=== PATIENT | female | born 1960 | race Caucasian/White ===

== ENCOUNTER 2016-05-01 11:26 | Emergency (ER) | payer MEDICAID ==
--- NOTE | 2016-05-01 11:46 | ER Document Report ---
ED Medical Screen (RME) - General Stated Complaint: NECK PAIN Notes: two days c/o left face swelling with associated ear pain gets worse with eating No evidence of dental fracture, dental caries. Patient has dentures. Evidence of swelling in her gums. Afebrile I have greeted and performed a rapid initial assessment of this patient. A comprehensive ED assessment and evaluation of the patient, analysis of test results and completion of the medical decision making process will be conducted by additional ED providers. TRAVEL OUTSIDE OF THE [place] IN LAST 30 DAYS: No - Related Data Allergies/Adverse Reactions: codeine [Codeine] Allergy (Verified 05/06/15 18:19) Past Medical History - Past Medical History Cardiac Medical History: Reports: Hx Heart Attack, Hx Hypercholesterolemia, Hx Hypertension Pulmonary Medical History: Reports: Hx Asthma Past Surgical History: Reports: Hx Cardiac Surgery - cabgx3 - Immunizations Hx Diphtheria, Pertussis, Tetanus Vaccination: Yes Physical Exam - Vital signs Vitals: Temp Pulse Resp BP Pulse Ox 97.9 F 76 16 145/59 H 98 05/01/16 11:43 05/01/16 11:43 05/01/16 11:43 05/01/16 11:43 05/01/16 11:43 Course - Vital Signs Vital signs: Temp Pulse Resp BP Pulse Ox 97.9 F 76 16 145/59 H 98 05/01/16 11:43 05/01/16 11:43 05/01/16 11:43 05/01/16 11:43 05/01/16 11:43
--- NOTE | 2016-05-01 13:07 | ER Document Report ---
HPI - HPI Patient complains to provider of: swelling left face Onset: Yesterday Onset/Duration: Gradual Pain Level: 3 Context: 55 yo female had left face/jaw swelling during eating since yesterday. swelling decreased over time, them occurred again today with eating. No fever. No neck pain. No dental pain. Hx carotid stenosis full on the right, 50% left with stent placmenet. Vascular surgeron US of the left carotid was normal last month in [place]. Pt unsure if she ever had bruit on the left. Associated Symptoms: None Exacerbated by: Other - eating Relieved by: Denies Similar symptoms previously: No Recently seen / treated by doctor: No - ROS ROS below otherwise negative: Yes Systems Reviewed and Negative: Yes All other systems reviewed and negative - REPRODUCTIVE Reproductive: DENIES: : - DERM Skin Color: Normal Past Medical History - General Information source: Patient - Social History Smoking Status: Current Every Day Smoker Chew tobacco use (# tins/day): No Frequency of alcohol use: Occasional Drug Abuse: None Lives with: Family Family History: Reviewed & Not Pertinent Patient has suicidal ideation: No Patient has homicidal ideation: No - Past Medical History Cardiac Medical History: Reports: Hx Heart Attack, Hx Hypercholesterolemia, Hx Hypertension Pulmonary Medical History: Reports: Hx Asthma Renal/ Medical History: Denies: Hx Peritoneal Dialysis Past Surgical History: Reports: Hx Cardiac Surgery - cabgx3, Other - left carotid stent - Immunizations Hx Diphtheria, Pertussis, Tetanus Vaccination: Yes Vertical Provider Document - CONSTITUTIONAL Agree With Documented VS: Yes Exam Limitations: No Limitations General Appearance: No Apparent Distress - INFECTION CONTROL TRAVEL OUTSIDE OF THE [place] IN LAST 30 DAYS: No - HEENT HEENT: Normocephalic. negative: Pharyngeal Erythema, Tympanic Membrane Red, Tympanic Membrane Bulging Notes: mild swelling to left parotid gland uper and below the proximal left mandible. No stone seen in duct. no hot or red. - NECK Neck: Supple Notes: mild turbulant blood flow in left carotid heard with stethescope, no heart murmur - RESPIRATORY Respiratory: Breath Sounds Normal, No Respiratory Distress O2 Sat by Pulse Oximetry: 98 - CARDIOVASCULAR Cardiovascular: Regular Rate, Regular Rhythm - GI/ABDOMEN Gastrointestinal: Abdomen Soft - MUSCULOSKELETAL/EXTREMETIES Musculoskeletal/Extremeties: MAEW - NEURO Level of Consciousness: Awake, Alert - DERM Integumentary: Warm, Dry, No Rash Course - Vital Signs Vital signs: Temp Pulse Resp BP Pulse Ox 97.9 F 76 16 145/59 H 98 05/01/16 11:43 05/01/16 11:43 05/01/16 11:43 05/01/16 11:43 05/01/16 11:43 Discharge - Discharge Clinical Impression: Parotitis Condition: Good Disposition: HOME, SELF-CARE Instructions: Acute Parotid Gland Swelling ([facility]), Clindamycin ([facility]), Warm Packs ([facility]), ENT Additional Instructions: suck on lemon candy warm compress, massage see ENT doctor if persists to er if worse call dr. stahl in [place] your vascular surgeon and ask about the noisy blood flow sound in the left carotid that has the stent. He did the ultrasound last week and said everything was OK, but did he ever hear this sound ? Should you see him this week? Prescriptions: Clindamycin HCl [Cleocin 150 mg Capsule] 300 mg PO TID #42 capsule Referrals: SINTIA ROGER, WET END TESTER-C [Primary Care Provider] - Follow up as needed
[2016-05-01 15:05] VITALS: BP 136/62
== END 2016-05-01 14:15 | disposition home or self-care (01) ==
LOC: ER 11:26
DX: K11.20 Sialoadenitis, unspecified (principal); R22.0 Localized swelling, mass and lump, head; F17.200 Nicotine dependence, unspecified, uncomplicated; E78.00 Pure hypercholesterolemia, unspecified; I10 Essential (primary) hypertension; J45.909 Unspecified asthma, uncomplicated; I25.2 Old myocardial infarction; Z95.1 Presence of aortocoronary bypass graft
CPT/HCPCS: 99283

== ENCOUNTER → 2016-06-09 | Outpatient (CLI) | payer MEDICAID ==
[2016-06-09 09:20] LABS: ALANINE AMINOTRANSFERASE 96 U/L (9-52); ALBUMIN 4.3 g/dL (3.5-5.0); ALKALINE PHOSPHATASE 59 U/L (38-126); ASPARTATE AMINO TRANSFERASE 76 U/L (14-36); BILIRUBIN,TOTAL 0.5 mg/dL (0.2-1.3); CHOLESTEROL 118.64 mg/dL (0-200); Direct HDL 38 mg/dL (>40); TOTAL PROTEIN 6.9 g/dL (6.3-8.2); TRIGLYCERIDES 205 mg/dL (<150)
[2016-06-09 09:23] LABS: ANION GAP 13 (5-19); BLOOD UREA NITROGEN 7 mg/dL (7-20); CARBON DIOXIDE 25 mmol/L (22-30); CHLORIDE 102 mmol/L (98-107); CREATININE RESULT 0.58 mg/dL (0.52-1.25); GLUCOSE 170 mg/dL (75-110); POTASSIUM 4.3 mmol/L (3.6-5.0)
[2016-06-09 09:32] LABS: DIRECT LDL 48 mg/dL (<100)
== END ==
LOC: OD 07:22
PROVIDERS: ATTEND Internal Medicine Cardiovascular Disease
DX: E78.2 Mixed hyperlipidemia (principal); E11.9 Type 2 diabetes mellitus without complications; Z79.899 Other long term (current) drug therapy
CPT/HCPCS: 36415; 80048; 80061; 80076; 83036

== ENCOUNTER → 2016-09-11 | Outpatient (CLI) | payer MEDICAID ==
[2016-09-11 08:53] LABS: ALANINE AMINOTRANSFERASE 53 U/L (9-52); ALBUMIN 4.1 g/dL (3.5-5.0); ALKALINE PHOSPHATASE 52 U/L (38-126); ASPARTATE AMINO TRANSFERASE 28 U/L (14-36); BILIRUBIN,DIRECT 0.3 mg/dL (0.0-0.4); BILIRUBIN,TOTAL 0.4 mg/dL (0.2-1.3); CHOLESTEROL 279.49 mg/dL (0-200); Direct HDL 31 mg/dL (>40); TOTAL PROTEIN 7.1 g/dL (6.3-8.2)
[2016-09-11 09:04] LABS: DIRECT LDL 138 mg/dL (<100)
[2016-09-11 09:12] LABS: TRIGLYCERIDES 562 mg/dL (<150)
== END ==
LOC: OD 07:58
PROVIDERS: ATTEND Internal Medicine Cardiovascular Disease
DX: R94.5 Abnormal results of liver function studies (principal); E78.2 Mixed hyperlipidemia
CPT/HCPCS: 36415; 80061; 80076

== ENCOUNTER → 2016-09-27 | Outpatient (CLI) | payer MEDICAID ==
[2016-09-27 12:27] LABS: ALANINE AMINOTRANSFERASE 70 U/L (9-52); ALBUMIN 4.1 g/dL (3.5-5.0); ALKALINE PHOSPHATASE 52 U/L (38-126); ANION GAP 11 (5-19); ASPARTATE AMINO TRANSFERASE 36 U/L (14-36); BILIRUBIN,DIRECT 0.4 mg/dL (0.0-0.4); BILIRUBIN,TOTAL 0.5 mg/dL (0.2-1.3); BLOOD UREA NITROGEN 6 mg/dL (7-20); CALCIUM 9.8 mg/dL (8.4-10.2); CARBON DIOXIDE 24 mmol/L (22-30); CHLORIDE 97 mmol/L (98-107); CREATININE RESULT 0.67 mg/dL (0.52-1.25); GLUCOSE 298 mg/dL (75-110); MAGNESIUM 1.8 mg/dL (1.6-2.3); POTASSIUM 4.3 mmol/L (3.6-5.0); SODIUM 132.3 mmol/L (137-145); TOTAL PROTEIN 7.1 g/dL (6.3-8.2)
== END ==
LOC: OD 11:13
PROVIDERS: ATTEND Internal Medicine Cardiovascular Disease
DX: R94.5 Abnormal results of liver function studies (principal); Z79.899 Other long term (current) drug therapy; R63.1 Polydipsia; R68.2 Dry mouth, unspecified; E11.9 Type 2 diabetes mellitus without complications; R53.1 Weakness
CPT/HCPCS: 36415; 80048; 80076; 83036; 83735

== ENCOUNTER → 2016-12-21 | Outpatient (CLI) | payer MEDICAID ==
[2016-12-21 10:20] LABS: ALANINE AMINOTRANSFERASE 82 U/L (9-52); ALBUMIN 4.4 g/dL (3.5-5.0); ALKALINE PHOSPHATASE 55 U/L (38-126); ANION GAP 11 (5-19); ASPARTATE AMINO TRANSFERASE 51 U/L (14-36); BILIRUBIN,DIRECT 0.4 mg/dL (0.0-0.4); BILIRUBIN,TOTAL 0.6 mg/dL (0.2-1.3); BLOOD UREA NITROGEN 7 mg/dL (7-20); CALCIUM 10.8 mg/dL (8.4-10.2); CARBON DIOXIDE 25 mmol/L (22-30); CHLORIDE 99 mmol/L (98-107); CHOLESTEROL 277.66 mg/dL (0-200); CREATININE RESULT 0.65 mg/dL (0.52-1.25); Direct HDL 29 mg/dL (>40); GLUCOSE 216 mg/dL (75-110); POTASSIUM 4.7 mmol/L (3.6-5.0); SODIUM 134.7 mmol/L (137-145); TOTAL PROTEIN 7.2 g/dL (6.3-8.2)
[2016-12-21 10:32] LABS: DIRECT LDL 156 mg/dL (<100)
[2016-12-21 10:33] LABS: TRIGLYCERIDES 552 mg/dL (<150)
== END ==
LOC: OD 09:10
PROVIDERS: ATTEND Internal Medicine Cardiovascular Disease
DX: R94.5 Abnormal results of liver function studies (principal); E78.2 Mixed hyperlipidemia; E11.9 Type 2 diabetes mellitus without complications; Z79.899 Other long term (current) drug therapy
CPT/HCPCS: 36415; 80048; 80061; 80076; 83036

== ENCOUNTER 2017-05-10 21:11 | Emergency (ER) | payer MEDICAID ==
--- NOTE | 2017-05-10 21:46 | ER Document Report ---
ED Medical Screen (RME) - General Chief Complaint: Flu Symptoms Stated Complaint: SHORTNESS OF BREATH,CHEST PAIN Time Seen by Provider: 05/10/17 21:40 Mode of Arrival: Wheelchair Information source: Patient Notes: 56-year-old female presents to ED for complaint of right chest pain with pain down her right arm times a couple days. She has been coughing and short of breath for about a week. She states she took Tylenol around 634 fever 101.8. Her lungs are clear respirations unlabored speaking in full sentences. I have greeted and performed a rapid initial assessment of this patient. A comprehensive ED assessment and evaluation of the patient, analysis of test results and completion of medical decision making process will be conducted by an additional ED providers. TRAVEL OUTSIDE OF THE [place] IN LAST 30 DAYS: No - Related Data Allergies/Adverse Reactions: codeine [Codeine] Allergy (Verified 05/01/16 11:48) Past Medical History - Past Medical History Cardiac Medical History: Reports: Hx Heart Attack, Hx Hypercholesterolemia, Hx Hypertension Pulmonary Medical History: Reports: Hx Asthma Renal/ Medical History: Denies: Hx Peritoneal Dialysis Past Surgical History: Reports: Hx Cardiac Surgery - cabgx3, Hx Vascular Surgery , Other - left carotid stent - Immunizations Hx Diphtheria, Pertussis, Tetanus Vaccination: Yes Physical Exam - Vital signs Vitals: Temp Pulse Resp BP Pulse Ox 98.7 F 104 H 20 132/57 H 96 05/10/17 21:22 05/10/17 21:22 05/10/17 21:22 05/10/17 21:22 05/10/17 21:22 Course - Vital Signs Vital signs: Temp Pulse Resp BP Pulse Ox 98.7 F 104 H 20 132/57 H 96 05/10/17 21:22 05/10/17 21:22 05/10/17 21:22 05/10/17 21:22 05/10/17 21:22
--- NOTE | 2017-05-10 22:13 | RADIOLOGY REPORT (SQ) ---
EXAM DESCRIPTION: CHEST PA/LAT COMPLETED DATE/TIME: 05/10/2017 10:04 pm REASON FOR STUDY: Cough congestion fever COMPARISON: 05/06/2015 EXAM PARAMETERS: NUMBER OF VIEWS: two views TECHNIQUE: Digital Frontal and Lateral radiographic views of the chest acquired. RADIATION DOSE: NA LIMITATIONS: none FINDINGS: LUNGS AND PLEURA: No acute opacities, masses or pneumothorax. No pleural effusion. MEDIASTINUM AND HILAR STRUCTURES: Stable. HEART AND VASCULAR STRUCTURES: Heart normal size. No evidence for failure. BONES: No acute findings. HARDWARE: CABG. Vascular stents. OTHER: No other significant finding. IMPRESSION: No acute findings. TECHNICAL DOCUMENTATION: JOB ID: [id number] [id number] 2010 [employer]- All Rights Reserved
--- NOTE | 2017-05-10 22:39 | EKG REPORT ---
SEVERITY:- BORDERLINE ECG - SINUS RHYTHM BORDERLINE INFERIOR Q WAVES BORDERLINE ST DEPRESSION, ANTERIOR LEADS : Confirmed by: Jayla Mauricio 10-May-2017 22:38:43
[2017-05-10 23:14] LABS: ABSOLUTE MONOCYTES (AUTO) 0.4 10^3/uL (0.1-1.4); ABSOLUTE NEUT (AUTO) 1.6 10^3/uL (1.7-8.2); BASOPHILS % (AUTO) 0.5 % (0-2); EOSINOPHILS % (AUTO) 1.1 % (0-6); HEMATOCRIT 41.3 % (36.0-47.0); HEMOGLOBIN 14.2 g/dL (12.0-15.5); LYMPHOCYTES % (AUTO) 33.1 % (13-45); MEAN CORPUSCULAR HEMOGLOBIN 29.7 pg (27.0-33.4); MEAN CORPUSCULAR HGB CONC 34.3 g/dL (32.0-36.0); MEAN CORPUSCULAR VOLUME 87 fl (80-97); MONOCYTES % (AUTO) 13.4 % (3-13); PLATELET COUNT 180 10^3/uL (150-450); RED BLOOD COUNT 4.77 10^6/uL (3.72-5.28); RED CELL DISTRIBUTION WIDTH 13.4 % (11.5-14.0); SEGMENTED NEUTROPHILS % (AUTO) 51.9 % (42-78); TOTAL CELLS COUNTED % (AUTO) 100 %
[2017-05-10 23:19] LABS: ALANINE AMINOTRANSFERASE 63 U/L (9-52); ALBUMIN 4.9 g/dL (3.5-5.0); ALKALINE PHOSPHATASE 51 U/L (38-126); ANION GAP 13 (5-19); ASPARTATE AMINO TRANSFERASE 34 U/L (14-36); BILIRUBIN,DIRECT 0.2 mg/dL (0.0-0.4); BILIRUBIN,TOTAL 0.5 mg/dL (0.2-1.3); BLOOD UREA NITROGEN 7 mg/dL (7-20); CALCIUM 9.3 mg/dL (8.4-10.2); CARBON DIOXIDE 26 mmol/L (22-30); CHLORIDE 94 mmol/L (98-107); CREATINE KINASE 61 U/L (30-135); GLUCOSE 199 mg/dL (75-110); MAGNESIUM 1.5 mg/dL (1.6-2.3); POTASSIUM 3.6 mmol/L (3.6-5.0); SODIUM 132.6 mmol/L (137-145); TOTAL PROTEIN 7.5 g/dL (6.3-8.2)
[2017-05-10 23:21] LABS: APPEARANCE,URINE CLEAR; BILIRUBIN,URINE NEGATIVE (NEGATIVE); COLOR,URINE YELLOW; GLUCOSE, URINE 150 mg/dL (NEGATIVE); KETONES,URINE NEGATIVE (NEGATIVE); LEUKOCYTE ESTERASE,URINE NEGATIVE (NEGATIVE); NITRITE,URINE NEGATIVE (NEGATIVE); PROTEIN,URINE NEGATIVE (NEGATIVE); URINE SPECIFIC GRAVITY 1.009; UROBILINOGEN,URINE NEGATIVE mg/dL (<2.0)
[2017-05-10 23:29] LABS: CREATINE KINASE MB 0.81 ng/mL (<4.55)
[2017-05-10 23:32] LABS: TROPONIN I < 0.012 ng/mL
[2017-05-11] MEDS ORDERED: NORMAL SALINE 1000 ML 1,000 ML IV ONE (01:33)
[2017-05-11] MEDS ORDERED: BENZONATATE 100 MG CAPSULE PO ONE (01:34)
[2017-05-11] MEDS ORDERED: ALBUTEROL SULFATE HFA (90 MCG/PUFF) 8 GM MDI (1 MDI/ER DISP) IH PRN (01:34)
[2017-05-11] MEDS ORDERED: LIDOCAINE 5% (700 MG) TRANSDERMAL ADH..PATCH TP ONE (01:34)
[2017-05-11] MEDS ORDERED: DEXAMETHASONE 4 MG TABLET PO ONE (01:34)
--- NOTE | 2017-05-11 01:38 | ER Document Report ---
ED General - General Chief Complaint: Flu Symptoms Stated Complaint: SHORTNESS OF BREATH,CHEST PAIN Time Seen by Provider: 05/10/17 21:40 Mode of Arrival: Wheelchair Notes: Patient is a 56-year-old female with a past medical history of coronary artery disease, hypertension, hyperlipidemia, who presents with 1 week of cough, sputum production, body aches, and right-sided chest discomfort worsened by coughing and breathing. She reports that nothing seems to improve her symptoms. She describes as a sharp, stabbing pain to the right side of her chest underneath her armpit region. She denies a history of similar symptoms in the past. She has not seen her general doctor regarding today's concerns. She has had a fever at home up to 101.6F and developed a fever while here in the emergency department. She did not receive an influenza vaccine this year. She denies any vomiting, diarrhea, headache, confusion, hemoptysis, or unilateral leg swelling. No history of DVT or pulmonary embolus. She does continue to smoke. TRAVEL OUTSIDE OF THE [place] IN LAST 30 DAYS: No - Related Data Allergies/Adverse Reactions: codeine [Codeine] Allergy (Verified 05/01/16 11:48) Past Medical History - General Information source: Patient - Social History Smoking Status: Current Every Day Smoker Frequency of alcohol use: None Drug Abuse: None Lives with: Family Family History: Reviewed & Not Pertinent Patient has suicidal ideation: No Patient has homicidal ideation: No - Past Medical History Cardiac Medical History: Reports: Hx Heart Attack, Hx Hypercholesterolemia, Hx Hypertension Pulmonary Medical History: Reports: Hx Asthma Renal/ Medical History: Denies: Hx Peritoneal Dialysis Past Surgical History: Reports: Hx Cardiac Surgery - cabgx3, Hx Vascular Surgery , Other - left carotid stent - Immunizations Hx Diphtheria, Pertussis, Tetanus Vaccination: Yes Review of Systems - Review of Systems Notes: Constitutional: Positive for fever. HENT: Negative for sore throat. Eyes: Negative for visual changes. Cardiovascular: Negative for chest pain. Respiratory: Positive for shortness of breath. Gastrointestinal: Negative for abdominal pain, vomiting or diarrhea. Genitourinary: Negative for dysuria. Musculoskeletal: Negative for back pain. Skin: Negative for rash. Neurological: Negative for headaches, weakness or numbness. 10 point ROS negative except as marked above and in HPI. Physical Exam - Vital signs Vitals: Temp Pulse Resp BP Pulse Ox 98.7 F 104 H 20 132/57 H 96 05/10/17 21:22 05/10/17 21:22 05/10/17 21:22 05/10/17 21:22 05/10/17 21:22 Interpretation: Tachycardic Notes: PHYSICAL EXAMINATION: GENERAL: Well-appearing, well-nourished and in no acute distress. HEAD: Atraumatic, normocephalic. EYES: Pupils equal round and reactive to light, extraocular movements intact, sclera anicteric, conjunctiva are normal. ENT: nares patent, oropharynx clear without exudates. Moderately dry mucous membranes. NECK: Normal range of motion, supple without lymphadenopathy LUNGS: Breath sounds clear to auscultation bilaterally and equal. No wheezes rales or rhonchi. HEART: Regular tachycardia without murmurs Chest wall: Pain on palpation of the right anterior lateral chest ABDOMEN: Soft, nontender, normoactive bowel sounds. No guarding, no rebound. No masses appreciated. EXTREMITIES: Normal range of motion, no pitting or edema. No cyanosis. NEUROLOGICAL: No focal neurological deficits. Moves all extremities spontaneously and on command. PSYCH: Normal mood, normal affect. SKIN: Warm, Dry, normal turgor, no rashes or lesions noted. Course - Re-evaluation Re-evalutation: 05/11/17 01:34 Patient presents with right sided chest wall discomfort worsened with coughing and breathing after having over 1 week of what appears to be an acute bronchitis. At time of my assessment, vitals show mild tachycardia. Otherwise unremarkable. I do not suspect an acute pulmonary embolus as patient has a clinical history much more consistent with a costochondritis in the setting of vigorous coughing for the past 1 week. The pain is completely reproducible on examination. She states the pain is most severe when she coughs. She denies any exertional worsening of her symptoms, hemoptysis, unilateral leg swelling or use of estrogen. She has no history of DVT or pulmonary embolus and has no history of malignancy. ACS seems unlikely given clinical history, EKG and negative troponin. Chest x-ray is clear without evidence of a pneumothorax, rib fracture or infiltrate. Patient has been treated with analgesics, steroids and inhalers as she was notably wheezing on examination and it does continue to smoke. Heart rate did improve with IV fluids. At this time will discharge with return precautions and follow-up recommendations. Verbal discharge instructions given a the bedside and opportunity for questions given. Medication warnings reviewed. Patient is in agreement with this plan and has verbalized understanding of return precautions and the need for primary care follow-up in the next 24-72 hours. - Vital Signs Vital signs: Temp Pulse Resp BP Pulse Ox 98.7 F 104 H 21 H 175/73 H 100 05/10/17 21:22 05/10/17 21:22 05/11/17 02:00 05/11/17 01:24 05/11/17 02:00 - Laboratory Result Diagrams: 05/10/17 22:50 05/10/17 22:50 Laboratory results interpreted by me: 05/10/17 05/10/17 05/10/17 22:50 22:50 22:50 WBC 3.0 L Monocytes % 13.4 H Absolute Neutrophils 1.6 L Sodium 132.6 L Chloride 94 L Glucose 199 H Magnesium 1.5 L ALT 63 H Urine Glucose (UA) 150 H - Diagnostic Test Radiology reviewed: Image reviewed, Reports reviewed Radiology results interpreted by me: 05/11/17 01:36 Chest x-ray: No acute infiltrate or pneumothorax - EKG Interpretation by Me Additional EKG results interpreted by me: 05/11/17 01:37 Sinus rhythm. Rate 94, no ST elevations or depressions. EKG unchanged from prior, QTC 471. Discharge - Discharge Clinical Impression: Chest wall pain Acute bronchitis Qualifiers: Bronchitis organism: unspecified organism Qualified Code(s): J20.9 - Acute bronchitis, unspecified Condition: Good Disposition: HOME, SELF-CARE Additional Instructions: You were seen for symptoms most consistent with bronchitis. This can take up to 12 weeks to fully resolve. This is generally due to a viral infection. Please follow-up with your primary doctor in the next 2-3 days. Return if you develop worsening cough, vomiting, fever >100.4, pass out, begin coughing blood, or have any other symptoms that are concerning to you. Please use the medications prescribed today as directed. Prescriptions: Benzonatate [Tessalon Perles 100 mg Capsule] 100 mg PO Q8HP PRN #40 capsule PRN Reason:
[2017-05-11] MEDS ORDERED: ACETAMINOPHEN 325 MG TABLET PO ONE (02:23)
[2017-05-11] MEDS ORDERED: KETOROLAC TROMETHAMINE INJ/PF 30 MG/1 ML SDV IV ONE (05:03)
[2017-05-11 05:56] VITALS: BP 122/47
== END 2017-05-11 06:03 | disposition home or self-care (01) ==
LOC: ER 21:11
DX: J20.9 Acute bronchitis, unspecified (principal); J45.909 Unspecified asthma, uncomplicated; R07.89 Other chest pain; R05 Cough; R50.9 Fever, unspecified; R00.0 Tachycardia, unspecified; R06.02 Shortness of breath; I25.10 Atherosclerotic heart disease of native coronary artery without angina pectoris; I10 Essential (primary) hypertension; I25.2 Old myocardial infarction; F17.200 Nicotine dependence, unspecified, uncomplicated; Z88.5 Allergy status to narcotic agent; Z95.5 Presence of coronary angioplasty implant and graft; Z95.1 Presence of aortocoronary bypass graft
CPT/HCPCS: 93005; 99284; 96361; 96374; 36415; 82553; 82550; 83735; 85025; 80053; 81001; 84484; 71046; 93010; J3490 ×5; J1885; J7030

== ENCOUNTER → 2017-07-12 | Outpatient (CLI) | payer MEDICAID ==
[2017-07-12 13:12] LABS: HEMOGLOBIN 14.5 g/dL (12.0-15.5); MEAN CORPUSCULAR HEMOGLOBIN 28.9 pg (27.0-33.4); MEAN CORPUSCULAR HGB CONC 34.4 g/dL (32.0-36.0); MEAN CORPUSCULAR VOLUME 84 fl (80-97); PLATELET COUNT 281 10^3/uL (150-450); RED CELL DISTRIBUTION WIDTH 14.3 % (11.5-14.0); WHITE BLOOD COUNT 6.5 10^3/uL (4.0-10.5)
[2017-07-12 13:29] LABS: ALANINE AMINOTRANSFERASE 46 U/L (9-52); ALBUMIN 4.8 g/dL (3.5-5.0); ALKALINE PHOSPHATASE 42 U/L (38-126); ANION GAP 13 (5-19); ASPARTATE AMINO TRANSFERASE 21 U/L (14-36); BILIRUBIN,DIRECT 0.5 mg/dL (0.0-0.4); BILIRUBIN,TOTAL 0.6 mg/dL (0.2-1.3); BLOOD UREA NITROGEN 15 mg/dL (7-20); CALCIUM 11.1 mg/dL (8.4-10.2); CARBON DIOXIDE 27 mmol/L (22-30); CHLORIDE 95 mmol/L (98-107); CHOLESTEROL 251.53 mg/dL (0-200); GLUCOSE 213 mg/dL (75-110); POTASSIUM 5.1 mmol/L (3.6-5.0); SODIUM 134.5 mmol/L (137-145); TOTAL PROTEIN 7.9 g/dL (6.3-8.2); TRIGLYCERIDES 381 mg/dL (<150)
[2017-07-12 13:40] LABS: DIRECT LDL 129 mg/dL (<100)
[2017-07-12 13:43] LABS: VLDL CHOLESTEROL 76.2 mg/dL (10-31)
== END ==
LOC: OD 12:04
PROVIDERS: ATTEND Internal Medicine Cardiovascular Disease
DX: E78.2 Mixed hyperlipidemia (principal); E11.9 Type 2 diabetes mellitus without complications; R94.5 Abnormal results of liver function studies; I10 Essential (primary) hypertension; Z79.899 Other long term (current) drug therapy
CPT/HCPCS: 36415; 80048; 80061; 80076; 83036; 83735; 85027

== ENCOUNTER → 2017-09-12 | Outpatient (CLI) | payer MEDICAID ==
[2017-09-12 10:24] LABS: ALANINE AMINOTRANSFERASE 28 U/L (9-52); ALBUMIN 4.4 g/dL (3.5-5.0); ALKALINE PHOSPHATASE 49 U/L (38-126); ANION GAP 12 (5-19); ASPARTATE AMINO TRANSFERASE 19 U/L (14-36); BILIRUBIN,DIRECT 0.4 mg/dL (0.0-0.4); BILIRUBIN,TOTAL 0.5 mg/dL (0.2-1.3); BLOOD UREA NITROGEN 14 mg/dL (7-20); CALCIUM 10.1 mg/dL (8.4-10.2); CARBON DIOXIDE 28 mmol/L (22-30); CHLORIDE 98 mmol/L (98-107); CHOLESTEROL 216.49 mg/dL (0-200); GLUCOSE 139 mg/dL (75-110); SODIUM 137.7 mmol/L (137-145); TOTAL PROTEIN 7.6 g/dL (6.3-8.2); TRIGLYCERIDES 268 mg/dL (<150)
[2017-09-12 10:38] LABS: DIRECT LDL 136 mg/dL (<100)
[2017-09-12 10:41] LABS: VLDL CHOLESTEROL 53.6 mg/dL (10-31)
== END ==
LOC: OD 09:07
PROVIDERS: ATTEND Internal Medicine Cardiovascular Disease
DX: E78.2 Mixed hyperlipidemia (principal); R94.5 Abnormal results of liver function studies; I10 Essential (primary) hypertension; Z79.899 Other long term (current) drug therapy
CPT/HCPCS: 36415; 80048; 80061; 80076

== ENCOUNTER → 2017-09-18 | Outpatient (CLI) | payer MEDICAID ==
[~2017-09-18] MED LIST: REGADENOSON INJ 0.4 MG/5 ML DISP.SYRIN IV ONE
--- NOTE | 2017-09-19 15:24 | RADIOLOGY REPORT ---
STRESS TEST REPORT [id number]#: DATE OF SERVICE: 09/18/2017 AGE: 57Y ORDER#: [id number] REFERRING MD: STAR ESCAMILLA M.D. INDICATION: For assessment of coronary artery disease, status post coronary artery bypass surgery and stents, pending risk stratification for carotid stenting. PROCEDURE PERFORMED: Rest/stress single isotope Cardiolite SPECT imaging with IV Lexiscan stress and gated SPECT imaging. CLINICAL HISTORY: This 57-year-old female with well-known coronary artery disease, status post coronary artery bypass surgery and 3 stents (no details), is currently pending carotid endarterectomy or stenting. Continuing risk factors include diabetes, hypertension, hypercholesterolemia, smoking. REPORT Patient received IV Lexiscan 0.4 mg infused over 10 seconds. Resting heart rate was 76 BPM and increased to 99 BPM at end infusion. The resting blood pressure was 128/66 and increased to 143/67 at end infusion. Patient had no symptoms of chest pain. Resting 12-lead EKG showed NSR 72. T inversions were seen in the anterolateral leads. At end infusion, no further increase in ST changes were seen. Myocardial perfusion imaging was performed at rest 60 minutes following injection of 10.24 mCi. Ten seconds after the IV Lexiscan was injected, 31.7 mCi of Cardiolite were injected and flushed. Gated post-stress tomographic imaging was performed 60 minutes after stress. SUMMARY OF FINDINGS/IMPRESSION: The overall quality of the study is fair. There was extra-cardiac stomach lining uptake superimposed on the mid inferior wall on both the stress and rest studies. The left ventricular cavity was noted to be normal in size in both the rest and stress studies. There was no evidence of abnormal transient ischemic dilatation of left ventricle. The TID ratio was 1.02. The left ventricular ejection fraction was 76%. SPECT images showed a small to moderate area of mild reversible ischemia in the inferolateral wall, but no fixed perfusion defect. The gated SPECT imaging showed normal motion but reduced contraction in the inferolateral wall. The left ventricular ejection fraction was calculated to be 76%. IMPRESSION: Myocardial perfusion imaging is abnormal. There is a small/moderate area of reversible ischemia in the inferolateral wall. There was no fixed perfusion defect. Overall left ventricular systolic function was normal at 76%, and There was reduced contraction and motion in the inferolateral wall. No prior study for comparison. INTERPRETING PHYSICIAN: STAR ESCAMILLA M.D. /: [id number] TT: [id number] ID: [id number] /: [id number] TD: [id number] JOB: [id number] cc:STAR ESCAMILLA M.D. > MTDD
== END ==
LOC: RAD 06:29
PROVIDERS: ATTEND Internal Medicine Cardiovascular Disease
DX: I25.10 Atherosclerotic heart disease of native coronary artery without angina pectoris (principal)
CPT/HCPCS: 93017; 78452; A9500; J2785

== ENCOUNTER → 2017-10-01 | Outpatient (CLI) | payer MEDICAID ==
[2017-10-01 15:18] LABS: ALANINE AMINOTRANSFERASE 27 U/L (9-52); ALBUMIN 4.2 g/dL (3.5-5.0); ALKALINE PHOSPHATASE 43 U/L (38-126); ASPARTATE AMINO TRANSFERASE 23 U/L (14-36); BILIRUBIN,DIRECT 0.4 mg/dL (0.0-0.4); BILIRUBIN,TOTAL 0.5 mg/dL (0.2-1.3); CHOLESTEROL 131.99 mg/dL (0-200); TOTAL PROTEIN 6.8 g/dL (6.3-8.2); TRIGLYCERIDES 218 mg/dL (<150)
[2017-10-01 15:30] LABS: DIRECT LDL 69 mg/dL (<100)
[2017-10-01 15:39] LABS: VLDL CHOLESTEROL 43.6 mg/dL (10-31)
== END ==
LOC: OD 14:10
PROVIDERS: ATTEND Internal Medicine Cardiovascular Disease
DX: E78.2 Mixed hyperlipidemia (principal); R94.5 Abnormal results of liver function studies
CPT/HCPCS: 36415; 80061; 80076

== ENCOUNTER → 2018-01-10 | Outpatient (CLI) | payer MEDICAID ==
[2018-01-10 16:14] LABS: HEMATOCRIT 38.9 % (36.0-47.0); HEMOGLOBIN 13.2 g/dL (12.0-15.5); MEAN CORPUSCULAR HEMOGLOBIN 28.3 pg (27.0-33.4); MEAN CORPUSCULAR VOLUME 83 fl (80-97); PLATELET COUNT 242 10^3/uL (150-450); RED BLOOD COUNT 4.67 10^6/uL (3.72-5.28); RED CELL DISTRIBUTION WIDTH 14.3 % (11.5-14.0); WHITE BLOOD COUNT 5.3 10^3/uL (4.0-10.5)
[2018-01-10 16:25] LABS: INTERNATIONAL RATION (INR) 0.93; PROTHROMBIN TIME 12.9 SEC (11.4-15.4)
[2018-01-10 16:31] LABS: ANION GAP 14 (5-19); BLOOD UREA NITROGEN 8 mg/dL (7-20); CARBON DIOXIDE 23 mmol/L (22-30); CHLORIDE 101 mmol/L (98-107); GLUCOSE 175 mg/dL (75-110); POTASSIUM 4.3 mmol/L (3.6-5.0); SODIUM 137.9 mmol/L (137-145)
== END ==
LOC: OD 15:08
PROVIDERS: ATTEND Internal Medicine Cardiovascular Disease
DX: Z01.810 Encounter for preprocedural cardiovascular examination (principal); R07.9 Chest pain, unspecified; R07.89 Other chest pain; Z79.01 Long term (current) use of anticoagulants
CPT/HCPCS: 36415; 80048; 85027; 85610; 85730

== ENCOUNTER → 2018-02-20 | Outpatient (CLI) | payer MEDICAID ==
--- NOTE | 2018-02-20 14:11 | RADIOLOGY REPORT (SQ) ---
EXAM DESCRIPTION: CHEST PA/LATERAL COMPLETED DATE/TIME: 02/20/2018 1:55 pm REASON FOR STUDY: CHEST PAIN, SEE ORDER COMPARISON: May 2017 EXAM PARAMETERS: NUMBER OF VIEWS: two views TECHNIQUE: Digital Frontal and Lateral radiographic views of the chest acquired. RADIATION DOSE: NA LIMITATIONS: none FINDINGS: LUNGS AND PLEURA: No opacities, masses or pneumothorax. No pleural effusion. MEDIASTINUM AND HILAR STRUCTURES: No masses or contour abnormalities. HEART AND VASCULAR STRUCTURES: Heart normal size. No evidence for failure. BONES: No acute findings. HARDWARE: Patient is status post median sternotomy. Vascular stents are again identified overlying b oth axillary regions. OTHER: No other significant finding. IMPRESSION: No significant interval change. No acute findings. Other findings as noted above. TECHNICAL DOCUMENTATION: JOB ID: [id number] [employer]- All Rights Reserved Reading location - IP/workstation name: [email or web address]
[2018-02-20 14:33] LABS: HEMATOCRIT 37.1 % (36.0-47.0); HEMOGLOBIN 12.6 g/dL (12.0-15.5); MEAN CORPUSCULAR HEMOGLOBIN 28.4 pg (27.0-33.4); MEAN CORPUSCULAR VOLUME 84 fl (80-97); PLATELET COUNT 286 10^3/uL (150-450); RED BLOOD COUNT 4.45 10^6/uL (3.72-5.28); RED CELL DISTRIBUTION WIDTH 14.8 % (11.5-14.0); WHITE BLOOD COUNT 5.6 10^3/uL (4.0-10.5)
== END ==
LOC: OD 13:36
PROVIDERS: ATTEND Internal Medicine Cardiovascular Disease
DX: I10 Essential (primary) hypertension (principal); R07.9 Chest pain, unspecified; R25.2 Cramp and spasm; Z79.899 Other long term (current) drug therapy
CPT/HCPCS: 36415; 71046; 82306; 83735; 84443; 84484; 85027

== ENCOUNTER → 2018-03-07 | Outpatient (CLI) | payer MEDICAID ==
[2018-03-07 13:51] LABS: HEMATOCRIT 37.9 % (36.0-47.0); HEMOGLOBIN 12.9 g/dL (12.0-15.5); MEAN CORPUSCULAR HEMOGLOBIN 28.4 pg (27.0-33.4); MEAN CORPUSCULAR HGB CONC 33.9 g/dL (32.0-36.0); MEAN CORPUSCULAR VOLUME 84 fl (80-97); PLATELET COUNT 264 10^3/uL (150-450); RED BLOOD COUNT 4.53 10^6/uL (3.72-5.28); WHITE BLOOD COUNT 6.3 10^3/uL (4.0-10.5)
[2018-03-07 14:01] LABS: INTERNATIONAL RATION (INR) 0.95; PROTHROMBIN TIME 13.2 SEC (11.4-15.4)
[2018-03-07 14:02] LABS: PARTIAL THROMBOPLASTIN TIME 28.8 SEC (23.5-35.8)
[2018-03-07 14:13] LABS: ANION GAP 9 (5-19); BLOOD UREA NITROGEN 9 mg/dL (7-20); CALCIUM 9.9 mg/dL (8.4-10.2); CARBON DIOXIDE 30 mmol/L (22-30); CHLORIDE 99 mmol/L (98-107); GLUCOSE 253 mg/dL (75-110); POTASSIUM 4.5 mmol/L (3.6-5.0)
== END ==
LOC: OD 12:57
PROVIDERS: ATTEND Internal Medicine Cardiovascular Disease
DX: Z01.810 Encounter for preprocedural cardiovascular examination (principal); R07.89 Other chest pain; Z79.01 Long term (current) use of anticoagulants
CPT/HCPCS: 36415; 80048; 85027; 85610; 85730

== ENCOUNTER → 2018-10-25 | Outpatient (CLI) | payer MEDICAID ==
[2018-10-25 08:50] LABS: ALANINE AMINOTRANSFERASE 30 U/L (9-52); ALBUMIN 4.5 g/dL (3.5-5.0); ALKALINE PHOSPHATASE 56 U/L (38-126); ANION GAP 11 (5-19); ASPARTATE AMINO TRANSFERASE 23 U/L (14-36); BILIRUBIN,DIRECT 0.3 mg/dL (0.0-0.4); BILIRUBIN,TOTAL 0.3 mg/dL (0.2-1.3); BLOOD UREA NITROGEN 12 mg/dL (7-20); CARBON DIOXIDE 26 mmol/L (22-30); CHLORIDE 99 mmol/L (98-107); CHOLESTEROL 117.04 mg/dL (0-200); GLUCOSE 259 mg/dL (75-110); POTASSIUM 4.8 mmol/L (3.6-5.0); TOTAL PROTEIN 7.3 g/dL (6.3-8.2); TRIGLYCERIDES 207 mg/dL (<150)
[2018-10-25 09:01] LABS: DIRECT LDL 56 mg/dL (<100); VLDL CHOLESTEROL 41.4 mg/dL (10-31)
== END ==
LOC: OD 07:42
PROVIDERS: ATTEND Internal Medicine Cardiovascular Disease
DX: E78.2 Mixed hyperlipidemia (principal); R94.5 Abnormal results of liver function studies; I10 Essential (primary) hypertension; Z79.899 Other long term (current) drug therapy
CPT/HCPCS: 36415; 80048; 80061; 80076; 82977

== ENCOUNTER → 2019-03-07 | Outpatient (CLI) | payer MEDICAID ==
[2019-03-07 10:06] LABS: CHOLESTEROL 87.69 mg/dL (0-200); TRIGLYCERIDES 180 mg/dL (<150)
[2019-03-07 10:16] LABS: DIRECT LDL 38 mg/dL (<100)
== END ==
LOC: OD 09:11
PROVIDERS: ATTEND Internal Medicine Cardiovascular Disease
DX: E78.2 Mixed hyperlipidemia (principal)
CPT/HCPCS: 36415; 80061

== ENCOUNTER → 2019-09-18 | Outpatient (CLI) | payer MEDICAID ==
[~2019-09-18] MED LIST changes: +AMINOPHYLLINE INJ/PF 250 MG/10 ML SDV IV ONE
--- NOTE | 2019-09-22 12:10 | DRAGON STRESS TEST REPORT ---
INTRAVENOUS LEXISCAN CARDIOLITE STRESS TEST USING SINGLE PHOTON EMMISION COMPUTERIZED TOMOGRAPHIC. DATE OF PROCEDURE: September 18, 2019. INDICATION : Chest pain CARDIAC RISK FACTORS: CAD RESTING EKG: Sinus rhythm, no baseline ST-T wave changes noted STRESS EKG: No significant ST segment changes noted with LexiScan bolus REASON FOR TERMINATION: Protocol. PROCEDURE REPORT: Baseline heart rate 82 beats per minute with blood pressure of 122/55. Patient had no significant complaints. Patient was bolused with Lexiscan 0.4 mg intravenously followed by saline bolus. Heart rate at 2 minutes post bolus 100 with a blood pressure of 146/59. 3 minutes post bolus heart rate 87 with blood pressure of 132/58. No significant EKG changes were noted. Patient had no significant complaints during the procedure or postprocedure. CONCLUSIONS: Normal EKG and hemodynamic response to IV LexiScan. NUCLEAR DATA: At rest the patient was given 10.74 millicuries of technetium 99 sestamibi injected intravenously. As per protocol rest gated SPECT images were obtained. On day of stress test, the patient was given intravenous LexiScan at a dose of 0.4 mg in 5 mL intravenously, followed by flush with normal saline. Subsequently the stress dose of 32.1 millicuries of technetium 99 sestamibi was injected intravenously. As per protocol stress gated images were obtained. NUCLEAR INTERPRETATION: Both raw and processed data were used for interpretation. Visual, qualitative, computer-generated quantitative data was used. There was good myocardial uptake of technetium compound. Motion artifact and soft tissue attenuations were noted. Increased visceral uptake was noted. No definitive areas of transient perfusion defect noted, No definitive areas of fixed perfusion defect or scars noted. EKG gated imaging showed LV EF at 60 %, rest and stress gated EF similar visually. T. I D. ratio was 1.21. LV cavity noted to be small. Lung heart ratio noted to be within normal limits 0.21. No significant extracardiac and abnormal radiotracer activities were noted. RV free wall uptake was noted to be WNL. IMPRESSION: Also refer to comments under nuclear interpretation. Also test results needs to be interpreted in the context of pretest probability. 1. No definitive areas of transient perfusion defect noted. 2. There is no definitive scintigraphic evidence of myocardial infarction/scar. 3. EKG gated imaging shows left ventricular ejection fraction of approx. 60 %. 4. Clinical correlation requested as worse disease and or balanced ischemia could be missed. In approximately 10% of the cases Lexiscan may not cause adequate vasodilatory stress. RECOMMENDATIONS: Aggressive risk factor modification and medical management. Further evaluation may be needed if continued symptoms or other high risk indicators are noted on clinical evaluation. Close cardiology follow-up is also recommended. Clinical correlation with echocardiogram derived ejection fraction. Inability to exercise by itself can lead to increased cardiovascular event risks. Consider cardiology consultation and or follow-up if clinically indicated. I am available for cardiology evaluation and consultation if requested by the head filter tank tender helper, unless patient already has a hiv nurse. Dr. Ajay Mauricio. MRCP Board certified in cardiology and sleep medicine. Board certified in nuclear cardiology, adult echocardiography. MATT
== END ==
LOC: RAD 07:05
PROVIDERS: ATTEND Physician Assistant
DX: I25.119 Atherosclerotic heart disease of native coronary artery with unspecified angina pectoris (principal)
CPT/HCPCS: 93017; 78452; A9500; J2785; J0280; Q9969

== ENCOUNTER → 2019-10-14 | Outpatient (CLI) | payer MEDICAID ==
[2019-10-14 08:47] LABS: ALBUMIN 4.2 g/dL (3.5-5.0); ALKALINE PHOSPHATASE 44 U/L (38-126); ANION GAP 6 (5-19); ASPARTATE AMINO TRANSFERASE 29 U/L (14-36); BILIRUBIN,TOTAL 0.4 mg/dL (0.2-1.3); BLOOD UREA NITROGEN 10 mg/dL (7-20); CALCIUM 10.2 mg/dL (8.4-10.2); CARBON DIOXIDE 29 mmol/L (22-30); CHLORIDE 100 mmol/L (98-107); CHOLESTEROL 77.93 mg/dL (0-200); GLUCOSE 128 mg/dL (75-110); POTASSIUM 4.9 mmol/L (3.6-5.0); TRIGLYCERIDES 204 mg/dL (<150)
[2019-10-14 09:02] LABS: DIRECT LDL < 30 mg/dL (<100); VLDL CHOLESTEROL 40.8 mg/dL (10-31)
== END ==
LOC: OD 07:18
PROVIDERS: ATTEND Physician Assistant
DX: E78.2 Mixed hyperlipidemia (principal); I10 Essential (primary) hypertension; Z79.899 Other long term (current) drug therapy
CPT/HCPCS: 36415; 80048; 80061; 80076

== ENCOUNTER → 2019-12-02 | Outpatient (CLI) | payer MEDICAID ==
[2019-12-02 09:57] LABS: ALBUMIN 4.1 g/dL (3.5-5.0); ALKALINE PHOSPHATASE 38 U/L (38-126); ASPARTATE AMINO TRANSFERASE 21 U/L (14-36); BILIRUBIN,DIRECT 0.2 mg/dL (0.0-0.4); BILIRUBIN,TOTAL 0.4 mg/dL (0.2-1.3); CHOLESTEROL 77.45 mg/dL (0-200); TOTAL PROTEIN 6.4 g/dL (6.3-8.2); TRIGLYCERIDES 116 mg/dL (<150)
[2019-12-02 10:00] LABS: ANION GAP 10 (5-19); BLOOD UREA NITROGEN 10 mg/dL (7-20); CALCIUM 9.3 mg/dL (8.4-10.2); CARBON DIOXIDE 23 mmol/L (22-30); CHLORIDE 99 mmol/L (98-107); GLUCOSE 129 mg/dL (75-110); POTASSIUM 4.6 mmol/L (3.6-5.0)
[2019-12-02 10:26] LABS: DIRECT LDL < 30 mg/dL (<100)
== END ==
LOC: OD 09:12
PROVIDERS: ATTEND Physician Assistant
DX: E78.2 Mixed hyperlipidemia (principal); I10 Essential (primary) hypertension; Z79.899 Other long term (current) drug therapy
CPT/HCPCS: 36415; 80048; 80061; 80076

== ENCOUNTER → 2019-12-16 | Outpatient (CLI) | payer MEDICAID ==
[2019-12-16 15:35] LABS: ARTERIAL BLOOD H2CO3 0.99 mmol/L (1.05-1.35); ARTERIAL BLOOD HCO3 21.8 mmol/L (20-24); ARTERIAL BLOOD O2 SATURATION 96.9 % (94-98); ARTERIAL BLOOD PCO2 32.8 mmHg (35-45); ARTERIAL BLOOD PH 7.44 (7.35-7.45); ARTERIAL BLOOD PO2 85.8 mmHg (80-100); ARTERIAL BLOOD TOTAL CO2 22.8 mmol/L (21-25)
[2019-12-16 15:37] LABS: ARTERIAL BLOOD FIO2 ROOM AIR
[2019-12-16 15:42] LABS: ABSOLUTE EOSINOPHILS # (AUTO) 0.1 10^3/uL (0.0-0.6); ABSOLUTE LYMPHOCYTES (AUTO) 1.5 10^3/uL (0.5-4.7); ABSOLUTE MONOCYTES (AUTO) 0.6 10^3/uL (0.1-1.4); ABSOLUTE NEUT (AUTO) 3.2 10^3/uL (1.7-8.2); BASOPHILS % (AUTO) 0.9 % (0-2); EOSINOPHILS % (AUTO) 2.6 % (0-6); HEMATOCRIT 25.3 % (36.0-47.0); LYMPHOCYTES % (AUTO) 27.3 % (13-45); MEAN CORPUSCULAR HEMOGLOBIN 20.1 pg (27.0-33.4); MEAN CORPUSCULAR HGB CONC 31.4 g/dL (32.0-36.0); MONOCYTES % (AUTO) 10.3 % (3-13); PLATELET COUNT 204 10^3/uL (150-450); RED BLOOD COUNT 3.96 10^6/uL (3.72-5.28); RED CELL DISTRIBUTION WIDTH 17.5 % (11.5-14.0); SEGMENTED NEUTROPHILS % (AUTO) 58.9 % (42-78); TOTAL CELLS COUNTED % (AUTO) 100 %; WHITE BLOOD COUNT 5.4 10^3/uL (4.0-10.5)
[2019-12-16 16:03] LABS: MEAN CORPUSCULAR VOLUME 64 fl (80-97)
[2019-12-16 16:04] LABS: ANION GAP 8 (5-19); BLOOD UREA NITROGEN 9 mg/dL (7-20); CALCIUM 9.6 mg/dL (8.4-10.2); CARBON DIOXIDE 27 mmol/L (22-30); CHLORIDE 97 mmol/L (98-107); GLUCOSE 220 mg/dL (75-110); POTASSIUM 4.5 mmol/L (3.6-5.0)
[2019-12-16 16:05] LABS: HEMOGLOBIN 7.9 g/dL (12.0-15.5)
[2019-12-16 16:08] LABS: HYPOCHROMASIA 1+; POLYCHROMASIA 1+
[2019-12-16 16:09] LABS: ANISOCYTOSIS 1+; OVALOCYTES 1+; PLATELET COMMENT ADEQUATE; POIKILOCYTOSIS 1+; SCHISTOCYTES SLIGHT; TEAR DROP CELLS SLIGHT
--- NOTE | 2019-12-16 16:16 | RADIOLOGY REPORT (SQ) ---
EXAM DESCRIPTION: CHEST PA/LATERAL IMAGES COMPLETED DATE/TIME: 12/16/2019 4:08 pm REASON FOR STUDY: OTHER FORMS OF DYSPNEA COMPARISON: 02/20/2018 EXAM PARAMETERS: NUMBER OF VIEWS: two views TECHNIQUE: Digital Frontal and Lateral radiographic views of the chest acquired. RADIATION DOSE: NA LIMITATIONS: none FINDINGS: LUNGS AND PLEURA: No opacities, masses or pneumothorax. No pleural effusion. MEDIASTINUM AND HILAR STRUCTURES: No masses or contour abnormalities. HEART AND VASCULAR STRUCTURES: Heart upper limits normal size. No evidence for failure. BONES: No acute findings. HARDWARE: CABG. OTHER: Bilateral subclavian vascular stents. IMPRESSION: No acute findings in the chest. TECHNICAL DOCUMENTATION: JOB ID: [id number] 2010 [employer]- All Rights Reserved Reading location - IP/workstation name: [email or web address]
== END ==
LOC: OD 14:32
PROVIDERS: ATTEND Internal Medicine Pulmonary Disease
DX: R06.09 Other forms of dyspnea (principal); Z95.1 Presence of aortocoronary bypass graft
CPT/HCPCS: 71046; 80048; 82803; 83880; 85025

== ENCOUNTER 2019-12-26 16:59 | Emergency (ER) | payer MEDICAID ==
--- NOTE | 2019-12-26 19:40 | ER Document Report ---
ED Medical Screen (RME) - General Chief Complaint: Abnormal Lab Results Stated Complaint: ABNORMAL LABS Time Seen by Provider: 12/26/19 19:32 Primary Care Provider: TIN SMALL PA-C [Primary Care Provider] - Follow up as needed Mode of Arrival: Ambulatory Information source: Patient Notes: 59-year-old female patient presents emergency department concern for abnormal labs. Patient reports she has been feeling fatigued for years, she states she gets dizzy when she stands. She states that she just started seeing a new primary care provider who is initiated a work-up on her. She states today they called her and told her that her hemoglobin was 6. She has never had a low hemoglobin in the past that she is aware of. She has never had a blood transfusion. She denies any knowledge of any bleeding, denies any dark stools. Patient is alert, oriented, skin pale. Vital signs within normal limits. I have greeted and performed a rapid initial assessment of this patient. A comprehensive ED assessment and evaluation of the patient, analysis of test results and completion of the medical decision making process will be conducted by additional ED providers. I have specifically instructed the patient or family members with the patient to immediately return to any nursing staff should anything change in the patient's condition or with their chief complaint. TRAVEL OUTSIDE OF THE [place] IN LAST 30 DAYS: No - Related Data Allergies/Adverse Reactions: codeine [Codeine] Allergy (Verified 12/26/19 19:32) Past Medical History - Past Medical History Cardiac Medical History: Reports: Hx Heart Attack, Hx Hypercholesterolemia, Hx Hypertension Pulmonary Medical History: Reports: Hx Asthma Renal/ Medical History: Denies: Hx Peritoneal Dialysis Past Surgical History: Reports: Hx Cardiac Surgery - cabgx3, Hx Section - x3, Hx Vascular Surgery, Other - left carotid stent - Immunizations Hx Diphtheria, Pertussis, Tetanus Vaccination: Yes Physical Exam - Vital signs Vitals: Temp Pulse Resp BP Pulse Ox 98.3 F 94 18 146/38 H 100 12/26/19 17:33 12/26/19 17:33 12/26/19 17:33 12/26/19 17:33 12/26/19 17:33 Course - Vital Signs Vital signs: Temp Pulse Resp BP Pulse Ox 98.3 F 94 18 146/38 H 100 12/26/19 17:33 12/26/19 17:33 12/26/19 17:33 12/26/19 17:33 12/26/19 17:33 Doctor's Discharge - Discharge Referrals: TIN SMALL PA-C [Primary Care Provider] - Follow up as needed
[2019-12-26 20:13] LABS: ABSOLUTE BASOPHILS # (AUTO) 0.1 10^3/uL (0.0-0.2); ABSOLUTE EOSINOPHILS # (AUTO) 0.2 10^3/uL (0.0-0.6); ABSOLUTE LYMPHOCYTES (AUTO) 2.6 10^3/uL (0.5-4.7); ABSOLUTE MONOCYTES (AUTO) 0.8 10^3/uL (0.1-1.4); BASOPHILS % (AUTO) 0.8 % (0-2); EOSINOPHILS % (AUTO) 2.1 % (0-6); HEMATOCRIT 26.1 % (36.0-47.0); HEMOGLOBIN 8.2 g/dL (12.0-15.5); LYMPHOCYTES % (AUTO) 30.1 % (13-45); MEAN CORPUSCULAR HEMOGLOBIN 19.9 pg (27.0-33.4); MEAN CORPUSCULAR HGB CONC 31.3 g/dL (32.0-36.0); MEAN CORPUSCULAR VOLUME 64 fl (80-97); MONOCYTES % (AUTO) 9.3 % (3-13); PLATELET COUNT 251 10^3/uL (150-450); RED BLOOD COUNT 4.11 10^6/uL (3.72-5.28); RED CELL DISTRIBUTION WIDTH 18.2 % (11.5-14.0); SEGMENTED NEUTROPHILS % (AUTO) 57.7 % (42-78); TOTAL CELLS COUNTED % (AUTO) 100 %; WHITE BLOOD COUNT 8.6 10^3/uL (4.0-10.5)
[2019-12-26 20:24] LABS: APPEARANCE,URINE SLIGHTLY-CLOUDY; BILIRUBIN,URINE NEGATIVE (NEGATIVE); COLOR,URINE YELLOW; GLUCOSE, URINE 50 mg/dL (NEGATIVE); KETONES,URINE NEGATIVE (NEGATIVE); LEUKOCYTE ESTERASE,URINE MODERATE (NEGATIVE); NITRITE,URINE NEGATIVE (NEGATIVE); PROTEIN,URINE NEGATIVE (NEGATIVE); URINE SPECIFIC GRAVITY 1.014; UROBILINOGEN,URINE NEGATIVE mg/dL (<2.0)
[2019-12-26 20:27] LABS: ALBUMIN 4.5 g/dL (3.5-5.0); ALKALINE PHOSPHATASE 46 U/L (38-126); ANION GAP 11 (5-19); ASPARTATE AMINO TRANSFERASE 21 U/L (14-36); BILIRUBIN,DIRECT 0.3 mg/dL (0.0-0.4); BILIRUBIN,TOTAL 0.6 mg/dL (0.2-1.3); BLOOD UREA NITROGEN 10 mg/dL (7-20); CALCIUM 9.1 mg/dL (8.4-10.2); CARBON DIOXIDE 24 mmol/L (22-30); CHLORIDE 98 mmol/L (98-107); GLUCOSE 157 mg/dL (75-110); POTASSIUM 4.1 mmol/L (3.6-5.0); TOTAL PROTEIN 7.2 g/dL (6.3-8.2)
[2019-12-26 20:48] LABS: ANISOCYTOSIS 1+; OVALOCYTES SLIGHT; PLATELET COMMENT ADEQUATE; POIKILOCYTOSIS SLIGHT; POLYCHROMASIA SLIGHT; TARGET CELLS SLIGHT; TEAR DROP CELLS SLIGHT
[2019-12-26 20:49] LABS: HYPOCHROMASIA SLIGHT
--- NOTE | 2019-12-26 21:59 | ER Document Report ---
ED General - General Chief Complaint: Abnormal Lab Results Stated Complaint: ABNORMAL LABS Time Seen by Provider: 12/26/19 19:32 Primary Care Provider: TIN SMALL PA-C [Primary Care Provider] - Follow up as needed KARLA NORRIS MD [ACTIVE STAFF] - Follow up as needed Mode of Arrival: Ambulatory Information source: Patient Notes: Patient presents complaining of fatigue for several years and dizziness with standing for the past 5 years. Patient states she recently went to a new doctor and had outpatient lab work performed. Patient states that her doctor called her as she had a hemoglobin of 6 that was performed 3 days ago. Patient denies any abnormal bleeding or bruising. Patient denies any blood in the stool or dark-colored stools. Patient states that she did start taking an iron pill yesterday. Patient states that her primary doctor has her set up to see a material damage adjuster next week. Patient denies any chest pain or dyspnea symptoms. TRAVEL OUTSIDE OF THE [place] IN LAST 30 DAYS: No - HPI Onset: Other - 5 years Onset/Duration: Persistent, Worse Quality of pain: No pain Associated symptoms: Other - Fatigue, dizziness. denies: Body/muscle aches, Chest pain, Nonproductive cough, Productive cough, Fever, Nausea, Vomiting Exacerbated by: Standing, Walking Relieved by: Sitting Similar symptoms previously: No Recently seen / treated by doctor: Yes - Related Data Allergies/Adverse Reactions: codeine [Codeine] Allergy (Verified 12/26/19 19:32) Past Medical History - General Information source: Patient - Social History Smoking Status: Current Every Day Smoker Frequency of alcohol use: None Drug Abuse: None Occupation: Retail Lives with: Family Family History: Reviewed & Not Pertinent Patient has homicidal ideation: No - Past Medical History Cardiac Medical History: Reports: Hx Coronary Artery Disease, Hx Heart Attack, Hx Hypercholesterolemia, Hx Hypertension Pulmonary Medical History: Reports: Hx Asthma Neurological Medical History: Reports: Hx Cerebrovascular Accident Renal/ Medical History: Denies: Hx Peritoneal Dialysis Past Surgical History: Reports: Hx Cardiac Surgery - cabgx3, Hx Carotid Endarterectomy, Hx Section - x3, Hx Vascular Surgery, Other - left carotid stent - Immunizations Hx Diphtheria, Pertussis, Tetanus Vaccination: Yes Review of Systems - Review of Systems Constitutional: Malaise EENT: No symptoms reported Cardiovascular: Dizziness. denies: Chest pain Respiratory: No symptoms reported. denies: Cough, Short of breath Gastrointestinal: No symptoms reported. denies: Abdominal pain, Nausea, Vomiting, Blood in vomit, Black stools, Rectal bleeding Genitourinary: No symptoms reported Female Genitourinary: No symptoms reported Musculoskeletal: No symptoms reported Skin: No symptoms reported Hematologic/Lymphatic: No symptoms reported. denies: Easy bleeding, Easy bruising Neurological/Psychological: No symptoms reported. denies: Headaches Physical Exam - Vital signs Vitals: Temp Pulse Resp BP Pulse Ox 98.3 F 94 18 146/38 H 100 12/26/19 17:33 12/26/19 17:33 12/26/19 17:33 12/26/19 17:33 12/26/19 17:33 - Notes Notes: PHYSICAL EXAMINATION: GENERAL: Well-appearing and in no acute distress. HEAD: Atraumatic, normocephalic. EYES: sclera anicteric, conjunctiva are normal. ENT: nares patent. Moist mucous membranes. NECK: Normal range of motion, supple without lymphadenopathy LUNGS: CTAB and equal. No wheezes rales or rhonchi. HEART: Regular rate and rhythm without murmurs ABDOMEN: Soft, nontender, normal bowel sounds, no guarding. EXTREMITIES: Normal range of motion, no pitting edema. No cyanosis. BACK: No CVA tenderness NEUROLOGICAL: Cranial nerves grossly intact. Normal speech. PSYCH: Normal mood, normal affect. SKIN: Mild pallor, warm, Dry, normal turgor, no rashes or lesions noted Course - Re-evaluation Re-evalutation: 12/26/19 21:55 Patient presents complaining of fatigue for the past several years that has worsened over the past week. Patient states she was advised to come here after her primary doctor obtained lab work in the office and told her that her hemoglobin was 6. Patient states these labs were drawn 3 days ago. Patient states she did recently start iron pills yesterday. Patient denies any abnormal bleeding or bruising. Patient denies any black stools or blood in her stools. Patient had outpatient lab work performed 10 days ago in which her hemoglobin and hematocrit were 7.9 and 25.3 respectively. Patient's hemoglobin today is 8.2 and hematocrit 26.1. Orthostatic vital signs were obtained and patient did not become symptomatic during the measurements. Supine HR 82 BP 135/46, sitting HR80 BP 134/52, standing HR 84 BP 157/51. Patient does report that she has a follow-up appointment with a material damage adjuster next week. Patient encouraged to keep this appointment. Patient also advised that she may consider following up with a wood products manufacturer for further evaluation. Patient encouraged to continue with the iron supplements at this time. Consulted with Dr. Bartholomew who is in agreement with discharge plan of care at this time as patient has an upward trending H&H and no source of any active bleeding. Patient with stable vital signs and no tachycardia with her anemia. - Vital Signs Vital signs: Temp Pulse Resp BP Pulse Ox 98.3 F 86 18 122/56 L 100 12/26/19 17:33 12/26/19 19:36 12/26/19 21:45 12/26/19 22:24 12/26/19 22:24 - Laboratory Result Diagrams: 12/26/19 19:50 12/26/19 19:50 Laboratory results interpreted by me: 12/26/19 12/26/19 12/26/19 19:50 19:50 19:50 Hgb 8.2 L Hct 26.1 L MCV 64 L MCH 19.9 L MCHC 31.3 L RDW 18.2 H Sodium 132.5 L Glucose 157 H Urine Glucose (UA) 50 H Ur Leukocyte Esterase MODERATE H Urine Ascorbic Acid 40 H 12/26/19 21:59 Labs- All tests 24 hr 12/26/19 12/26/19 12/26/19 19:50 19:50 19:50 WBC 8.6 RBC 4.11 Hgb 8.2 L Hct 26.1 L MCV 64 L MCH 19.9 L MCHC 31.3 L RDW 18.2 H Plt Count 251 Lymph % (Auto) 30.1 [place] % (Auto) 9.3 Eos % (Auto) 2.1 Baso % (Auto) 0.8 Absolute Neuts (auto) 5.0 Absolute Lymphs (auto) 2.6 Absolute Monos (auto) 0.8 Absolute Eos (auto) 0.2 Absolute Basos (auto) 0.1 Seg Neutrophils % 57.7 Platelet Comment ADEQUATE Polychromasia SLIGHT Hypochromasia SLIGHT Poikilocytosis SLIGHT Anisocytosis 1+ Microcytosis 3+ Target Cells SLIGHT Tear Drop Cells SLIGHT Ovalocytes SLIGHT Sodium 132.5 L Potassium 4.1 Chloride 98 Carbon Dioxide 24 Anion Gap 11 BUN 10 Creatinine 0.76 Est GFR ( Amer) > 60 Est GFR (MDRD) Non-Af > 60 Glucose 157 H Calcium 9.1 Total Bilirubin 0.6 Direct Bilirubin 0.3 Neonat Total Bilirubin Not Reportable Neonat Direct Bilirubin Not Reportable Neonat Indirect Bili Not Reportable AST 21 ALT 19 Alkaline Phosphatase 46 Total Protein 7.2 Albumin 4.5 Urine Color Urine Appearance Urine pH Ur Specific [place] Urine Protein Urine Glucose (UA) Urine Ketones Urine Blood Urine Nitrite Urine Bilirubin Urine Urobilinogen Ur Leukocyte Esterase Urine WBC (Auto) Urine RBC (Auto) U Hyaline Cast (Auto) Urine Bacteria (Auto) Squamous Epi Cells Auto Urine Mucus (Auto) Urine Ascorbic Acid POC Stool Occult Blood Blood Type A POSITIVE Antibody Screen NEGATIVE 12/26/19 12/26/19 19:50 20:59 WBC RBC Hgb Hct MCV MCH MCHC RDW Plt Count Lymph % (Auto) [place] % (Auto) Eos % (Auto) Baso % (Auto) Absolute Neuts (auto) Absolute Lymphs (auto) Absolute Monos (auto) Absolute Eos (auto) Absolute Basos (auto) Seg Neutrophils % Platelet Comment Polychromasia Hypochromasia Poikilocytosis Anisocytosis Microcytosis Target Cells Tear Drop Cells Ovalocytes Sodium Potassium Chloride Carbon Dioxide Anion Gap BUN Creatinine Est GFR ( Amer) Est GFR (MDRD) Non-Af Glucose Calcium Total Bilirubin Direct Bilirubin Neonat Total Bilirubin Neonat Direct Bilirubin Neonat Indirect Bili AST ALT Alkaline Phosphatase Total Protein Albumin Urine Color YELLOW Urine Appearance SLIGHTLY-CLOUDY Urine pH 5.0 Ur Specific [place] 1.014 Urine Protein NEGATIVE Urine Glucose (UA) 50 H Urine Ketones NEGATIVE Urine Blood NEGATIVE Urine Nitrite NEGATIVE Urine Bilirubin NEGATIVE Urine Urobilinogen NEGATIVE Ur Leukocyte Esterase MODERATE H Urine WBC (Auto) 11 Urine RBC (Auto) 3 U Hyaline Cast (Auto) 8 Urine Bacteria (Auto) TRACE Squamous Epi Cells Auto 2 Urine Mucus (Auto) RARE Urine Ascorbic Acid 40 H POC Stool Occult Blood NEGATIVE Blood Type Antibody Screen Discharge - Discharge Clinical Impression: Anemia Qualifiers: Anemia type: unspecified type Qualified Code(s): D64.9 - Anemia, unspecified Fatigue Qualifiers: Fatigue type: unspecified Qualified Code(s): R53.83 - Other fatigue Condition: Stable Disposition: HOME, SELF-CARE Instructions: Anemia ([facility]) Additional Instructions: Return immediately for any new or worsening symptoms: Abnormal bleeding, bruising, chest pain, dyspnea or any concerning new symptoms Followup with your primary care provider, call tomorrow to make a followup appointment Keep your appointment as planned with the material damage adjuster. You may also consider follow-up with a wood products manufacturer for further evaluation of your anemia. Referrals: TIN SMALL PA-C [Primary Care Provider] - Follow up as needed KARLA NORRIS MD [ACTIVE STAFF] - Follow up as needed
[2019-12-26 22:35] VITALS: BP 122/56
== END 2019-12-26 22:35 | disposition home or self-care (01) ==
LOC: ER 16:59
DX: R53.83 Other fatigue (principal); D64.9 Anemia, unspecified; R42 Dizziness and giddiness; F17.200 Nicotine dependence, unspecified, uncomplicated; I10 Essential (primary) hypertension; Z86.73 Personal history of transient ischemic attack (TIA), and cerebral infarction without residual deficits; I25.2 Old myocardial infarction
CPT/HCPCS: 36415; 80053; 81001; 82270; 85025; 86850; 86900; 86901; 87086; 99283

== ENCOUNTER 2020-04-22 07:29 | Day surgery (SDC) | payer MEDICAID ==
[~2020-04-22 07:29] MED LIST changes: -AMINOPHYLLINE INJ/PF 250 MG/10 ML SDV IV ONE; +CHONDR SU A NA/HYALUR INTRAOC KIT (SURGICARE) ONE; +EPINEPHRINE INJ/PF 1 MG/1 ML AMPULE ONE; +KETOROLAC TROMETHAMINE 0.45% 4 DROP/0.4 ML DROPERETTE OD PRN; +LIDOCAINE 1%/PHENYLEPHRINE 1.5% 1 ML VIAL ONE; -REGADENOSON INJ 0.4 MG/5 ML DISP.SYRIN IV ONE
--- OUTSIDE RECORDS SUMMARY | 2020-04-22 07:31 | XMS REPORT ---
:1960 [facility] [place] [facility] [place] [address] [place] [address] Care Team Providers Name Role Phone PEDRO ROGER Primary Care Physician Unavailable Delmy Soliman Attending Clinician Unavailable Viry Attending Clinician Unavailable Carmelita EMMANUEL Attending Clinician Unavailable LOGAN MEHTA Attending Clinician Unavailable EMERGENCY Admitting Clinician Unavailable Allergies, Adverse Reactions, Alerts Allergy Allergy Type Status Severity Reaction(s) Onset Inactive Treat ing Comments Name Date Date Clinician CODEINE Drug allergy Active Unknown 2019-11 00:00:0 0 Codeine Propensity Active 2017-07 to - reactions to 00:00:0 drug 0 Codeine Allergy to Active Sulfate Drug (Ingredie (Finding) nt(s): codeine) Codeine Allergy to Active Hives substance Medications Ordered Filled Start Stop Current Ordering Indication Dosage Frequency Signature Comments Components Medication Medication Date Date Medication? Clinician (SIG) Name Name ketorolac 2017-04 2018- No 60mg 60 mg, (TORADOL) 04-27 Intramuscu IM 19:25: 19:30 lar, ONCE, injection 00 :00 Mon 60 mg 02/25/18 at 1925, For 1 dose ibuprofen 2017-04 Yes 800mg Q8H Take 1 Tab (ADVIL,MOTR 04-27 by mouth IN) 800 mg 00:00: every 8 Oral Tablet 00 hours as needed for Pain. pravastatin 2017- Yes 20mg QD Take 1 Tab (PRAVACHOL) 4-06 by mouth 20 mg Oral 00:00: daily. Tablet 00 aspirin Yes 81mg QD Take 81 mg (SUSHILA -04 by mouth CHILDRENS 22:41: daily. ASPIRIN) 81 25 mg Oral Tablet, Chewable metoprolol 2018- Yes 25mg Q.5D Take 25 mg tartrate -04 by mouth (LOPRESSOR) 22:41: twice a 25 mg Oral 25 day. Tablet clopidogrel Yes 75mg QD Take 75 mg (PLAVIX) 75 4-04 by mouth mg Oral 22:41: daily. Tablet 25 LISINOPRIL 2018 Yes 10mg Take 10 mg ORAL 4-04 by mouth. 22:41: 24 Aspirin Yes 1 B Complex Yes 1 Vitamins Crestor Yes 1 FeroSul Yes 1 Gabapentin Yes 1 glipiZIDE Yes 2 ER Lantus Yes 50 Leg Cramp Yes 1 Relief Lisinopril Yes 1 metFORMIN Yes 1 HCl ER (MOD) Metoprolol Yes 1 Tartrate Plavix Yes 1 Vitamin C Yes 1 Zetia Yes 1 glipizide No 2 Q1D glipizide 10 mg 10 mg tablet Take tablet 2 tablets Take 2 every day tablets by oral every day route. by oral route. ropinirole No 1 Q1D ropinirole 1 mg tablet 1 mg Take 1 tablet tablet Take 1 every day tablet by oral every day route at by oral bedtime. route at bedtime. rosuvastati No 1 Q1D rosuvastat n 20 mg in 20 mg tablet Take tablet 1 tablet Take 1 every day tablet by oral every day route. by oral route. Wellbutrin No 1 BID Wellbutrin 100 mg 100 mg tablet Take tablet 1 tablet Take 1 twice a day tablet by oral twice a route. day by oral route. albuterol No albuterol sulfate HFA sulfate 90 HFA 90 mcg/actuati mcg/actuat on aerosol ion inhaler aerosol INHALE 1 inhaler PUFF BY INHALE 1 MOUTH EVERY PUFF BY 4 HOURS MOUTH NEEDED EVERY 4 HOURS NEEDED Anoro No Anoro Ellipta Ellipta 62.5 mcg-25 62.5 mcg/actuati mcg-25 on powder mcg/actuat for ion powder inhalation for INL 1 PUFF inhalation PO QD INL 1 PUFF PO QD Chantix No Chantix Continuing Continuing Month Box 1 Month Box mg tablet 1 mg FOLLOW BOX tablet DIRECTED FOLLOW BOX DIRECTED nicotine 7 No nicotine 7 mg/24 hr mg/24 hr daily daily transdermal transderma patch MARCELLE 1 l patch PA UTD ONCE MARCELLE 1 PA EACH DAY UTD ONCE EACH DAY omeprazole No omeprazole 20 mg 20 mg capsule,del capsule,de ayed layed release TK release TK 1 C PO D 1 C PO D FOR ACID FOR ACID REFLUX REFLUX peg-electro No peg-electr lyte olyte solution solution 420 gram 420 gram oral oral solution solution FPD FPD ropinirole No ropinirole 0.25 mg 0.25 mg tablet TK 1 tablet TK T PO QD HS 1 T PO QD HS rosuvastati No rosuvastat n 40 mg in 40 mg tablet TK 1 tablet TK T PO QD 1 T PO QD BromSite No BromSite 0.075 % eye 0.075 % drops eye drops INSTILL 1 INSTILL 1 DROP IN DROP IN RIGHT EYE RIGHT EYE TWICE DAILY TWICE BEGINNING 1 DAILY DAY BEFORE BEGINNING SURGERY 1 DAY BEFORE SURGERY moxifloxaci No moxifloxac n 0.5 % eye in 0.5 % drops eye drops INSTILL 1 INSTILL 1 DROP IN DROP IN RIGHT EYE RIGHT EYE THREE TIMES THREE DAILY TIMES BEGINNING 1 DAILY DAY BEFORE BEGINNING SURGERY 1 DAY BEFORE SURGERY prednisolon No prednisolo e acetate 1 ne acetate % eye 1 % eye drops,suspe drops,susp nsion SHAKE ension LIQUID AND SHAKE INSTILL 1 LIQUID AND DROP IN INSTILL 1 RIGHT EYE DROP IN THREE TIMES RIGHT EYE DAILY THREE BEGINNING 1 TIMES DAY BEFORE DAILY SURGERY BEGINNING 1 DAY BEFORE SURGERY Stiolto No Stiolto Respimat Respimat 2.5 mcg-2.5 2.5 mcg/actuati mcg-2.5 on solution mcg/actuat for ion inhalation solution INHALE 2 for PUFFS ONCE inhalation DAILY INHALE 2 PUFFS ONCE DAILY aspirin 81 No 1 Q1D aspirin 81 mg mg tablet,pramod tablet,del yed release ayed Take 1 release tablet Take 1 every day tablet by oral every day route. by oral route. baclofen 20 No 1 TID baclofen mg tablet 20 mg Take 1 tablet tablet 3 Take 1 times a day tablet 3 by oral times a route as day by needed. oral route as needed. Lantus No 50unit( Q1D Lantus Solostar s) Solostar U-100 U-100 Insulin 100 Insulin unit/mL (3 100 mL) unit/mL (3 subcutaneou mL) s pen subcutaneo INJECT 50 us pen UNITS INJECT 50 SUBCUTANEOU UNITS SLY EVERY SUBCUTANEO DAY USLY EVERY DAY pantoprazol No 1 Q1D pantoprazo e 20 mg le 20 mg tablet,pramod tablet,del yed release ayed Take 1 release tablet Take 1 every day tablet by oral every day route. by oral route. albuterol No albuterol sulfate HFA sulfate 90 HFA 90 mcg/actuati mcg/actuat on aerosol ion inhaler aerosol INHALE 1 inhaler PUFF BY INHALE 1 MOUTH EVERY PUFF BY 4 HOURS MOUTH NEEDED EVERY 4 HOURS NEEDED baclofen 10 No baclofen mg tablet 10 mg TK 1 T PO tablet TK BID PRN 1 T PO BID PRN clopidogrel No clopidogre 75 mg l 75 mg tablet TAKE tablet 1 TABLET BY TAKE 1 MOUTH EVERY TABLET BY DAY MOUTH EVERY DAY ezetimibe No ezetimibe 10 mg 10 mg tablet TK 1 tablet TK T PO QD 1 T PO QD ferrous No ferrous sulfate 325 sulfate mg (65 mg 325 mg (65 iron) mg iron) tablet TAKE tablet 1 TABLET BY TAKE 1 MOUTH TWICE TABLET BY DAILY MOUTH TWICE DAILY Lyrica 150 No 1capsul BID Lyrica 150 mg capsule e(s) mg capsule Take 1 Take 1 capsule capsule twice a day twice a by oral day by route. oral route. metformin No metformin ER 500 mg ER 500 mg tablet,exte tablet,ext nded ended release 24 release 24 hr TAKE 1 hr TAKE 1 TABLET BY TABLET BY MOUTH TWICE MOUTH DAILY TWICE DAILY ondansetron No ondansetro HCl 4 mg n HCl 4 mg tablet TK 1 tablet TK T PO 1 HOUR 1 T PO 1 BEFORE EACH HOUR BOWEL PREP BEFORE THEN PRN EACH BOWEL PREP THEN PRN pantoprazol No pantoprazo e 40 mg le 40 mg tablet,pramod tablet,del yed release ayed TK 1 T PO release TK QD 1 T PO QD gabapentin No gabapentin 600 mg 600 mg tablet One tablet One twice a day twice a and two at day and bedtime two at bedtime Glucophage No 1 BID Glucophage XR 500 mg XR 500 mg tablet,exte tablet,ext nded ended release release Take 1 Take 1 tablet tablet twice a day twice a by oral day by route. oral route. 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 Diabetes 00:00: mellitus Mellitus 00 Glaucoma Glaucoma Problem Active 225 00:00: 00 Onychomycos Onychomycos Problem Active is of is of 2-19 toenails Toenails 00:00: 00 Type 2 Type 2 Problem Active diabetes Diabetes 2-19 mellitus Mellitus 00:00: 00 Hyperlipide Hyperlipide Problem Active kunal kunal 2-19 00:00: 00 Tobacco Tobacco Problem Active user User 2 00:00: 00 Essential Essential Problem Active hypertensio Hypertensio 2-19 n n 00:00: 00 Coronary Coronary Problem Active arterioscle Arterioscle 2 rosis rosis 00:00: 00 Gastroesoph Gastroesoph Problem Active ageal ageal 2 reflux Reflux 00:00: disease Disease 00 Carotid Carotid Problem Active bruit Bruit 05-21 00:00: 00 History of History of Problem Active polyp of Polyp of 05-21 colon Colon 00:00: 00 Diabetes Diabetes Problem Active mellitus Mellitus 12-10 00:00: 00 Hyperlipide Hyperlipide Problem Active kunal kunal 9- 00:00: 00 Restless Restless Problem Active legs Legs 9- 00:00: 00 Hypertensiv Hypertensiv Problem Active e disorder e Disorder 12-10 00:00: 00 Myocardial Myocardial Problem Active infarction Infarction 9- 00:00: 00 Coronary Coronary Problem Active arterioscle Arterioscle 9 rosis rosis 00:00: 00 Cerebrovasc Cerebrovasc Problem Active ular ular 9- accident Accident 00:00: 00 Transient Transient Problem Active cerebral Cerebral 9- ischemia Ischemia 00:00: 00 Disorder of Disorder of Problem Active carotid Carotid 9 artery Artery 00:00: 00 Low back Low Back Problem Active pain Pain 9-10 00:00: 00 Placement Placement Problem Active of stent in of Stent in 12-10 cardiac Cardiac 00:00: conduit Conduit 00 CAD CAD [id number] Active (coronary (coronary 4-05 artery artery 00:00: disease) disease) 00 Carotid Carotid [id number] Active artery artery 05 occlusion occlusion 00:00: without without 00 infarction, infarction, right right Diabetes Diabetes [id number] Active 07-05 00:00: 00 Hypertensio Hypertensio 82155711 Active n n 4 00:00: 00 Type 2 Type 2 13593163 Active diabetes diabetes 07-05 mellitus mellitus 00:00: with with 00 complicatio complicatio n n Tobacco Tobacco [id number] Active abuse abuse 07-05 00:00: 00 Bilateral Bilateral [id number] Active carotid carotid 07-05 artery artery 00:00: stenosis stenosis 00 Acute Acute [id number] Resolve 2017-07-06 2017-07-06 ischemic ischemic d 07-05 00:00:00 11:39:03 stroke stroke 00:00: 00 Hyponatremi Hyponatremi [id number] Resolve 2017-07-06 2017-07-06 a a d 07-05 00:00:00 11:39:06 00:00: 00 Hyperglycem Hyperglycem [id number] Resolve 2017-07-06 2017-07-06 ia ia d 00:00:00 11:39:07 Procedures Procedure Date / Time Performed Performing Clinician Zion moise sacroiliac joint injection (PROC) 2020-04-07 00:00:00 sacroiliac joint injection (PROC) 2020-03-17 00:00:00 OFFICE/OUTPATIENT VISIT EST 2020-01-28 14:15:00 XR, lumbar spine 2019-12-16 00:00:00 OFFICE/OUTPATIENT VISIT NEW 2019-11-27 14:45:00 colonoscopy with EGD 2019-04-02 00:00:00 XR, lumbar spine 2018-12-10 00:00:00 URINALYSIS, COMPLETE 2018-02-25 23:10:00 Uli Kennedy TROPONIN I 2018-02-25 23:10:00 Uli Kennedy XRAY CHEST 1 VIEW 2018-02-25 23:08:09 Uli Kennedy EKG 12 LEAD - 2018-02-25 22:01:00 Uli Kennedy RCH,CHO,OBH,BRT,BFT,DUP EKGSCAN 2018-02-25 05:00:00 Unassign, Doctor Stent 2012-04-02 00:00:00 Heart Surgery 2012-04-02 00:00:00 CABG 2012-04-02 00:00:00 section tubal ligation stents multiple in every body part carotid endarterectomy with stent Left Operative Procedure on Carotid Body Coronary Artery Bypass Grafts X 3 Results Test Description Test Time Test Comments Text Results Atomic Results Result Comments Hemoglobin A1C (Performed Elsewhere)\S\ 2020-04-06 15:50:00 Test Item Value Reference Range Comments HgbA1C (Performed Elsewhere) (test code = 4548-4) 6.1 % 4-5.6 [id number] 14:38:00 Test Item Value Reference Range Comments Creatinine (test code = Creatinine) 0.7600 mg/dL 0.5700-1.000 0 Cr Clearance (Est) (test code = Cr 83.5500 75.0000-115.0 000 Clearance (Est)) Glucose (test code = Glucose) 225.0000 mg/dL 65.0000-99.0000 BUN (test code = BUN) 7.0000 mg/dL 6.0000-24.0000 eGFR Cab-Nipipts-Mqkqtdrb (test code = 87.0000 eGFR Rmj-Mpjwofv-Vhrvvpzq) eGFR -[place]anaian (test code = eGFR 100.0000 -[place]anaian) BUN/Creat Ratio (test code = BUN/Creat 9.0000 9.0000-23 .0000 Ratio) Sodium (test code = Sodium) 128.0000 mmol/L 134.0000-144.0000 Potassium (test code = Potassium) 4.4000 mmol/L 3.5000-5.2000 Chloride (test code = Chloride) 93.0000 mmol/L 96.0000-106.0000 CO2 (test code = CO2) 23.0000 mmol/L 20.0000-29.0000 Calcium (test code = Calcium) 9.5000 mg/dL 8.7000-10.2000 Protein, Total (test code = Protein, 6.7000 g/dL 6.0000-8.50 00 Total) Albumin (test code = Albumin) 4.2000 g/dL 3.8000-4.9000 Globulin (test code = Globulin) 2.5000 g/dL 1.5000-4.5000 A/G Ratio (test code = A/G Ratio) 1.7000 1.2000-2.2000 Bilirubin, Total (test code = Bilirubin, 0.3000 mg/dL 0.0000- 1.2000 Total) Alkaline Phosphatase (test code = Alkaline 40.0000 39.00 00-117.0000 Phosphatase) AST (SGOT) (test code = AST (SGOT)) 23.0000 0.0000-40.00 00 ALT (SGPT) (test code = ALT (SGPT)) 25.0000 0.0000-32.00 00 Iron, Total (test code = Iron, Total) 81.0000 27.0000-15 9.0000 TIBC (test code = TIBC) 405.0000 250.0000-450.0000 UIBC (test code = UIBC) 324.0000 131.0000-425.0000 % Iron Saturation (test code = % Iron 20.0000 % 15.0000-55 .0000 Saturation) Ferritin (test code = Ferritin) 48.0000 ng/mL 15.0000-150.0000 [id number] 13:30:00 Test Item Value Reference Range Comments WBC (test code = WBC) 5.7000 4.0000-10.0000 Lymphocytes % (test code = Lymphocytes %) 28.3000 % 22.400 0-43.6000 MID% (test code = MID%) 6.5000 % 1.2000-11.2000 Neutrophils % (test code = Neutrophils %) 65.2000 % 48.900 0-69.9000 Lymphocytes (test code = Lymphocytes) 1.6000 1.2000-3.2 000 MID (test code = MID) 0.4000 0.1000-1.1000 Neutrophils (test code = Neutrophils) 3.7000 1.5000-6.7 000 RBC (test code = RBC) 4.7800 3.7000-4.9000 HGB (test code = HGB) 12.0000 g/dL 11.2000-18.0000 HCT (test code = HCT) 35.8000 % 34.0000-44.0000 MCV (test code = MCV) 74.9000 fL 80.0000-94.0000 MCH (test code = MCH) 25.2000 pg 27.0000-34.0000 MCHC (test code = MCHC) 33.6000 g/dL 31.5000-36.0000 RDW (test code = RDW) 22.5000 11.0000-18.0000 PLT (test code = PLT) 260.0000 140.0000-440.0000 MPV (test code = MPV) 7.0000 fL 6.8000-10.6000 Hgb [id number] 09:29:42 Test Item Value Reference Range Comments Hgb Phenotype (test code = 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 eGFR NON-AFR. [place] 88 mL/min/1.73m2 >=60 (test code = 08128-0) eGFR 102 mL/min/1.73m2 >=60 (test code = 21374-9) BUN/CREATININE RATIO NOT APPLICABLE (calc) 6-22 (test code = 3097-3) SODIUM (test code = 134 mmol/L 369-560 1760-2) POTASSIUM (test code = 4.1 mmol/L 3.5-5.3 2823-3) CHLORIDE (test code = 102 mmol/L 98-110 5-0) CARBON DIOXIDE (test 23 mmol/L 20-32 code = 2027-9) CALCIUM (test code = 9.1 mg/dL 8.6-10.4 01788-8) PROTEIN, TOTAL (test 6.5 g/dL 6.1-8.1 code = 2885-2) ALBUMIN (test code = 4.2 g/dL 3.6-5.1 1751-7) GLOBULIN (test code = 2.3 g/dL (calc) 1.9-3.7 58089-1) ALBUMIN/GLOBULIN RATIO 1.8 (calc) 1.0-2.5 (test code = 1759-0) BILIRUBIN, TOTAL (test 0.2 mg/dL 0.2-1.2 code = 1975-2) ALKALINE PHOSPHATASE 35 U/L 37-153 (test code = 6768-6) AST (test code = 15 U/L 1919-8) ALT (test code = 15 U/L 09-282-6) IRON AND TOTAL IRON BINDING [id number] 16:57:00 Test Item Value Reference Range Comments IRON, TOTAL (test code = 2498-4) 15 mcg/dL 45-160 IRON BINDING CAPACITY (test code = 2500-7) 554 mcg/dL (calc) 250 -450 % SATURATION (test code = 2502-3) 3 % (calc) 16-45 CBC (INCLUDES DIFF/PLT)2020-01-07 16:57:00 Test Item Value Reference Range Comments WHITE BLOOD CELL COUNT (test code = 6690-2) 6.4 Thousand/uL 3.8- 10.8 RED BLOOD CELL COUNT (test code = 789-8) 3.66 Million/uL 3.80-5. 10 HEMOGLOBIN (test code = 718-7) 7.1 g/dL 11.7-15.5 HEMATOCRIT (test code = 4544-3) 26.0 % 35.0-45.0 MCV (test code = 787-2) 71.0 fL 80.0-100.0 MCH (test code = 785-6) 19.4 pg 27.0-33.0 MCHC (test code = 786-4) 27.3 g/dL 32.0-36.0 RDW (test code = 788-0) 15.8 % 11.0-15.0 PLATELET COUNT (test code = 777-3) 225 Thousand/uL 140-400 MPV (test code = 776-5) 10.3 fL 7.5-12.5 ABSOLUTE NEUTROPHILS (test code = 751-8) 2957 cells/uL 1500-78 00 ABSOLUTE LYMPHOCYTES (test code = 731-0) 2515 cells/uL 850-390 0 ABSOLUTE MONOCYTES (test code = 742-7) 755 cells/uL 200-950 ABSOLUTE EOSINOPHILS (test code = 711-2) 141 cells/uL 15-500 ABSOLUTE BASOPHILS (test code = 704-7) 32 cells/uL 0-200 NEUTROPHILS (test code = 770-8) 46.2 % LYMPHOCYTES (test code = 736-9) 39.3 % MONOCYTES (test code = 5905-5) 11.8 % EOSINOPHILS (test code = 713-8) 2.2 % BASOPHILS (test code = 706-2) 0.5 % [id number] 16:57:00 Test Item Value Reference Range Comments TRANSFERRIN (test code = 3034-6) 444 mg/dL 188-341 HEMOGLOBINOPATHY [id number] 16:57:00 Test Item Value Reference Range Comments RED BLOOD CELL COUNT (test code = 789-8) 3.72 Million/uL 3.80-5. 10 HEMOGLOBIN (test code = 718-7) 7.3 g/dL 11.7-15.5 HEMATOCRIT (test code = 4544-3) 27.0 % 35.0-45.0 MCV (test code = 787-2) 72.6 fL 80.0-100.0 MCH (test code = 785-6) 19.6 pg 27.0-33.0 RDW (test code = 788-0) 15.9 % 11.0-15.0 HEMOGLOBINOPATHY [id number] 16:57:00 Test Item Value Reference Range Comments HEMOGLOBIN A (test code = 88.5 % >96.0 4546-8) HEMOGLOBIN F (test code = <1.0 % <2.0 4576-5) HEMOGLOBIN A2 (QUANT) (test 1.5 % 1.8-3.5 code = 4551-8) OTHER HEMOGLOBIN 1 (test code HE CALVIN [place] AT 9.0% = 93241-2) INTERPRETATION (test code = Eval uation is consistent with 75965-4) the presence of a 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 This is an alpha chain variant that is usuallya ssociated with beta thalassemia trait.ssociRevie wed and Interpreted by Patricia Chu, Ph.D.,D [facility], [facility] [id number] 16:57:00 Test Item Value Reference Range Comments FERRITIN (test code = 2276-4) 4 ng/mL 16-232 [id number] 11:45:00 Test Item Value Reference Range Comments WBC (test code = WBC) 5.5000 4.0000-10.0000 Lymphocytes % (test code = Lymphocytes %) 19.7000 % 22.400 0-43.6000 MID% (test code = MID%) 5.6000 % 1.2000-11.2000 Neutrophils % (test code = Neutrophils %) 74.7000 % 48.900 0-69.9000 Lymphocytes (test code = Lymphocytes) 1.0000 1.2000-3.2 000 MID (test code = MID) 0.4000 0.1000-1.1000 Neutrophils (test code = Neutrophils) 4.1000 1.5000-6.7 000 RBC (test code = RBC) 4.2600 3.7000-4.9000 HGB (test code = HGB) 9.2000 g/dL 11.2000-18.0000 HCT (test code = HCT) 28.9000 % 34.0000-44.0000 MCV (test code = MCV) 67.8000 fL 80.0000-94.0000 MCH (test code = MCH) 21.7000 pg 27.0000-34.0000 MCHC (test code = MCHC) 32.0000 g/dL 31.5000-36.0000 RDW (test code = RDW) 22.0000 11.0000-18.0000 PLT (test code = PLT) 240.0000 140.0000-440.0000 MPV (test code = MPV) 6.9000 fL 6.8000-10.6000 COMPREHENSIVE METABOLIC [id number] 15:28:00 Test Item Value Reference Range Comments CALCIUM (test code = 41844557) 9.1 mg/dL 8.6-10.4 POTASSIUM (test code = 76211095) 4.1 mmol/L 3.5-5.3 ALKALINE PHOSPHATASE (test code = 3535 U/L 37-153 57973892) SODIUM (test code = 43107447) 134 mmol/L 135-146 AST (test code = 41126377) 1515 U/L 10-35 BUN/CREATININE RATIO (test code = NOT APPLICABLE (calc) 6-22 33108154) UREA NITROGEN (BUN) (test code = 11 mg/dL 7-25 77606479) eGFR NON-AFR. [place] (test code = 88 mL/min/1.73m2 > OR = 60 73990255) BILIRUBIN, TOTAL (test code = 0.2 mg/dL 0.2-1.2 40249217) CARBON DIOXIDE (test code = 32390278) 23 mmol/L 20-32 CREATININE (test code = 39592235) 0.75 mg/dL 0.50-1.05 GLOBULIN (test code = 92171152) 2.3 g/dL (calc) 1.9-3.7 GLUCOSE (test code = 31546278) 57 mg/dL 65-99 PROTEIN, TOTAL (test code = 06410081) 6.5 g/dL 6.1-8.1 ALBUMIN/GLOBULIN RATIO (test code = 1.8 (calc) 1.0-2.5 65013983) CHLORIDE (test code = 09446418) 102 mmol/L 98-110 ALT (test code = 64757582) 15 U/L 6-29 ALBUMIN (test code = 38651431) 4.2 g/dL 3.6-5.1 eGFR (test code = 102 mL/min/1.73m2 > OR = 60 22220421) IRON PANEL 15:28:00 Test Item Value Reference Range Comments TRANSFERRIN (test code = 10467416) 444 mg/dL 188-341 % SATURATION (test code = 57615432) 3 % (calc) 16-45 IRON, TOTAL (test code = 92471933) 15 mcg/dL 45-160 IRON BINDING CAPACITY (test code = 554 mcg/dL (calc) 250-450 63297011) FERRITIN (test code = 94356608) 4 ng/mL 16-232 CBC (INCLUDES DIFF/PLT)2019-12-23 15:28:00 Test Item Value Reference Range Comments ABSOLUTE LYMPHOCYTES (test code = 2515 cells/uL 850-3900 38983266) MONOCYTES (test code = 01980088) 11.8 % EOSINOPHILS (test code = 63401717) 2.2 % NEUTROPHILS (test code = 90144725) 46.2 % ABSOLUTE BASOPHILS (test code = 94815421) 32 cells/uL 0-200 PLATELET COUNT (test code = 34617482) 362530 Thousand/uL 140-400 MCHC (test code = 06736706) 27.3 g/dL 32.0-36.0 ABSOLUTE MONOCYTES (test code = 47416350) 755 cells/uL 200-95 0 HEMOGLOBIN (test code = 57511522) 7.1 g/dL 11.7-15.5 ABSOLUTE NEUTROPHILS (test code = 2957 cells/uL 1821-5053 61525369) MCV (test code = 02697258) 71.0 fL 80.0-100.0 BASOPHILS (test code = 61225539) 0.5 % ABSOLUTE EOSINOPHILS (test code = 141 cells/uL 15-500 37200527) RED BLOOD CELL COUNT (test code = 3.66 Million/uL 3.80-5.10 56695412) WHITE BLOOD CELL COUNT (test code = 6.4 Thousand/uL 3.8-10.8 25926055) HEMATOCRIT (test code = 62797721) 26.0 % 35.0-45.0 MCH (test code = 39579317) 19.4 pg 27.0-33.0 LYMPHOCYTES (test code = 78626164) 39.3 % RDW (test code = 53563044) 15.8 % 11.0-15.0 MPV (test code = 35572321) 10.3 fL 7.5-12.5 [id number] 14:50:30 Test Item Value Reference Range Comments Glucose (test code = Glucose) 57.0000 mg/dL 60.0000-125.0000 BUN (test code = BUN) 11.0000 mg/dL 5.0000-26.0000 Creatinine (test code = Creatinine) 0.7500 mg/dL 0.5000-1.500 0 Cr Clearance (Est) (test code = Cr 82.5500 75.0000-115.0 000 Clearance (Est)) Sodium (test code = Sodium) 134.0000 mmol/L 135.0000-148.0000 Potassium (test code = Potassium) 4.1000 mmol/L 3.5000-5.5000 Chloride (test code = Chloride) 102.0000 mmol/L 96.0000-109.0000 CO2 (test code = CO2) 23.0000 mmol/L 21.0000-32.0000 Calcium (test code = Calcium) 9.1000 mg/dL 8.5000-10.6000 Protein, Total (test code = Protein, 6.5000 g/dL 6.0000-8.50 00 Total) Albumin (test code = Albumin) 4.2000 g/dL 3.5000-5.5000 Bilirubin, Total (test code = Bilirubin, 0.2000 mg/dL 0.1000- 1.2000 Total) Alkaline Phosphatase (test code = Alkaline 35.0000 40.00 00-150.0000 Phosphatase) AST (SGOT) (test code = AST (SGOT)) 15.0000 0.0000-45.00 00 ALT (SGPT) (test code = ALT (SGPT)) 15.0000 0.0000-50.00 00 Ferritin (test code = Ferritin) 4.0000 ng/mL 10.0000-291.0000 % Iron Saturation (test code = % Iron 3.0000 % 15.0000-55 .0000 Saturation) Iron, Total (test code = Iron, Total) 15.0000 40.0000-18 0.0000 TIBC (test code = TIBC) 554.0000 250.0000-450.0000 [id number] 14:50:30 Test Item Value Reference Range Comments WBC (test code = WBC) 6.4000 4.0000-10.5000 HGB (test code = HGB) 7.1000 g/dL 11.5000-15.0000 HCT (test code = HCT) 26.0000 % 34.0000-44.0000 MCV (test code = MCV) 71.0000 fL 80.0000-98.0000 Platelet Count (test code = Platelet Count) 225.0000 140. 0000-415.0000 Hemoglobin A1C (Performed Elsewhere)\S\2019-12-02 13:34:00 Test Item Value Reference Range Comments HgbA1C (Performed Elsewhere) (test code = 4548-4) 6.8 % 4-5.6 URINALYSIS, [id number] 19:10:56 Test Item Value Reference Range Comments Appearance, urine (test code = 5767-9) CLEAR CLEAR^[place] AR Color, urine (test code = 5778-6) YELLOW YEL^YELLOW Specific [place], urine (test code = 5811-5) 1.010 1.0 08-1.022 pH, urine (test code = 5803-2) 7.0 5.0-8.0 Protein, urine (test code = 5804-0) NEG NEG^NEG Glucose, urine (test code = 5792-7) 500 NEG^NEG Ketones, urine (test code = 5797-6) NEG NEG^NEG Hemoglobin, urine (test code = 5794-3) NEG NEG^NEG Urobilinogen, urine (test code = 50600-9) 0.2 0.2-1. 0 Bilirubin, urine (test code = 5770-3) NEG NEG^NEG Nitrites, urine (test code = 5802-4) NEG NEG^NEG Leukocyte Esterase, urine (test code = 5799-2) NEG N EG^NEG RBC, urine (test code = 92592-7) 0-2 0- 2 /HPF WBC, urine (test code = 5821-4) 0-2 0- 2 /HPF Epithelial Cells, urine (test code = 5787-7) FEW NON E^NONE /HPF Lab Interpretation (test code = 93144-2) Abnormal TROPONIN [id number] 19:10:50 Test Item Value Reference Range Comments Troponin I (test code = 01552-1) <0.01 0-0.056 XRAY CHEST 1 [id number] 18:35:00Impression: No acute pulmonary process. Reading Doctor: Arlin Braswell Electronic Signature by: Arlin Braswell Exam: Single view of the chest. Date of exam: 02/25/2018 processed at 1802. Indications: Chest pain Comparison: None. Findings: There are no focal infiltrates or pleural effusions. There is no pulmonary vascular congestion or pneumothorax. The cardiac and mediastinal silhouettes are unremarkable in appearance. There are no acute abnormalities within the visualized bony thorax. Vascular stents project over the lung apices bilaterally. Interface, Radresults_Incoming - 02/25/2018 6:39 PM EST Exam: Single view of the chest. Date of exam: 02/25/2018 processed at 1802. Indications: Chest pain Comparison: None. Findings: There are no focal infiltrates or pleural effusions. There is no pulmonary vascular congestion or pneumothorax. The cardiac and mediastinal silhouettes are unremarkable inappearance. There are no acute abnormalities within the visualized bony thorax. Vascular stents project over the lung apices bilaterally. IMPRESSION Impression: No acute pulmonary process. Reading Doctor: Arlin Braswell Electronic Signature by: Selma Braswell. METABOLIC PANEL (14) Test Item Value Reference Range Comments GLUCOSE (test code = 2345-7) 225 MG/DL 65-99 BUN (test code = 3094-0) 7 MG/DL 6-24 CREATININE (test code = 2160-0) .76 MG/DL 0.57-1.00 EGFR IF NONAFRICN AM (test code = 83967-7) 87 ML/MIN/1.73 >59 EGFR IF AFRICN AM (test code = 20333-1) 100 ML/MIN/1.73 >59 BUN/CREATININE RATIO (test code = 3097-3) 9 9-23 SODIUM (test code = 2951-2) 128 MMOL/L 134-144 POTASSIUM (test code = 2823-3) 4.4 MMOL/L 3.5-5.2 CHLORIDE (test code = 2075-0) 93 MMOL/L 96-106 CARBON DIOXIDE, TOTAL (test code = 2027-9) 23 MMOL/L 20-29 CALCIUM (test code = 55137-0) 9.5 MG/DL 8.7-10.2 PROTEIN, TOTAL (test code = 2885-2) 6.7 G/DL 6.0-8.5 ALBUMIN (test code = 1751-7) 4.2 G/DL 3.8-4.9 GLOBULIN, TOTAL (test code = 10374-9) 2.5 G/DL 1.5-4.5 A/G RATIO (test code = 1759-0) 1.7 1.2-2.2 BILIRUBIN, TOTAL (test code = 1975-2) .3 MG/DL 0.0-1.2 ALKALINE PHOSPHATASE (test code = 6768-6) 40 IU/L 39-117 AST (SGOT) (test code = 1920-8) 23 IU/L 0-40 ALT (SGPT) (test code = 1742-6) 25 IU/L 0-32 IRON AND TIBC Test Item Value Reference Range Comments IRON BIND.CAP.(TIBC) (test code = 2500-7) 405 UG/DL 250-45 0 UIBC (test code = 2501-5) 324 UG/DL 131-425 IRON (test code = 2498-4) 81 UG/DL 27-159 IRON SATURATION (test code = 2502-3) 20 % 15-55 FERRITIN, SERUM Test Item Value Reference Range Comments FERRITIN, SERUM (test code = 2276-4) 48 NG/ML 15-150 Assessments Condition Name Status Diagnosis Date Treating Clinici an Chronic pain syndrome Active 2020-04-07 13:29:58 Sacroiliac joint pain Active 2020-04-07 13:29:58 Low back pain Active 2020-04-07 13:29:58 Medication monitoring Active 2020-04-07 13:29:58 Type 2 diabetes mellitus Active 2020-02-29 14:22:58 Long-term current use of insulin Active 2020-02-29 14:2 3:01 Diabetic peripheral neuropathy Active 2020-04-06 14:45: 04 Retinopathy due to diabetes mellitus Active 2020-04-06 14:54:04 Chronic pain syndrome Active 2020-03-17 09:55:36 Sacroiliac joint pain Active 2020-03-17 09:56:50 Low back pain Active 2020-03-17 09:55:36 Medication monitoring 2020-03-17 09:55:51 Arthropathy of lumbar facet joint Active 2020-02-09 14: 21:40 Low back pain Active 2020-02-09 14:21:46 Degeneration of lumbar intervertebral Active 2020-02-09 14:21:55 disc Type 2 diabetes mellitus with diabetic Active polyneuropathy Corns and callosities Active Pain in right leg Active Pain in left leg Active Low back pain Active 2020-01-22 11:33:16 Arthropathy of lumbar facet joint Active 2020-01-22 11: 39:51 Lumbosacral spondylosis without Active 2020-01-22 11:39 :51 myelopathy Sacroiliac disorder Active 2020-01-22 11:39:51 Degeneration of lumbar intervertebral Active 2020-01-22 11:39:51 disc Arthropathy of lumbar facet joint Active 2019-12-16 13: 59:08 Lumbosacral spondylosis without Active 2019-12-16 13:59 :08 myelopathy Sacroiliac disorder Active 2019-12-16 13:59:08 Degeneration of lumbar intervertebral Active 2019-12-16 13:59:08 disc Low back pain 2019-12-15 16:58:37 Type 2 diabetes mellitus Active 2019-11-25 16:03:43 Microalbuminuria Active 2019-11-25 16:03:39 Long-term current use of insulin Active 2019-11-28 08:3 5:00 Retinopathy due to diabetes mellitus Active 2019-12-02 11:10:33 Type 2 diabetes mellitus with diabetic Active polyneuropathy [facility] (current) use of insulin Active Hyperlipidemia, unspecified Active Essential (primary) hypertension Active Type 2 diabetes mellitus Active 2019-08-27 15:43:08 Microalbuminuria Active 2019-08-27 15:43:03 Body mass index 25-29 - overweight Active 2019-09-02 11 :11:19 Diabetic peripheral neuropathy Active 2019-09-02 11:19: 40 Peripheral vascular disease Active 2019-09-02 11:30:20 Type 2 diabetes mellitus Active 2019-05-21 09:38:42 Diabetic peripheral neuropathy Active 2019-05-27 12:08: 17 Low back pain Active 2019-01-07 10:10:13 Arthropathy of lumbar facet joint Active 2019-01-07 10: 38:30 Lumbosacral spondylosis without Active 2019-01-07 10:38 :30 myelopathy Sacroiliac disorder Active 2019-01-07 10:38:30 Degeneration of lumbar intervertebral Active 2019-01-07 10:38:30 disc Low back pain Active 2018-12-10 10:08:15 Arthropathy of lumbar facet joint Active 2018-12-10 10: 44:24 Lumbosacral spondylosis without Active 2018-12-10 10:46 :33 myelopathy Sacroiliac disorder Active 2018-12-10 10:46:38 Degeneration of lumbar intervertebral Active 2018-12-10 10:48:02 disc Encounters Start End Encounter Admission Attending Care Care Encounter Date/Time Date/Time Type Type Clinicians Facility Department ID 2020-04-07 2020-04-07 Dillon Domingo [id number] 00:00:00 00:00:00 MD Jose: Surgical Surgical [id number] [address] [facility] [address] [place] [address], Ph. 2020-04-06 2020-04-06 Keely Domingo [id number] 00:00:00 00:00:00 [facility] [id number] PA-C: [address], [facility] Group, [facility], [place] [address], Ph. 2020-03-17 2020-03-17 Dillon Domingo [id number] 00:00:00 00:00:00 MD Jose: Surgical Surgical [id number] [address] [facility] [address] [place] [address], Ph. 2020-02-17 2020-02-17 [facility] n [id number] 00:00:00 00:00:00 Yeni cervantes Medical [facility] On[facility] [place] 2020-02-13 2020-02-13 Dr. Delmy Brock [facility] [place] n [id number] 00:00:00 00:00:00 Yeni PinedaPaula Jaime Medical Medical [facility] [place] 2020-02-12 2020-02-12 Outpatient Kelly Mendoza n [id number] 00:00:00 00:00:00 Medical [facility] [place] 2020-02-09 2020-02-09 Levi Gannoneret [id number] 00:00:00 00:00:00 Kelton, DO: Surgical Surgical [id number] [address] [place] [address], Ph. 2020-01-28 2020-01-28 Outpatient Bundle, [facility] 1A [id number] 14:15:00 14:15:00 [facility] [id number] and [id number] Multispecial [id number] ty Clini 2020-01-22 2020-01-22 Levi Domingo [id number] 00:00:00 00:00:00 Kelton, DO: Surgical Surgical [id number] [address] [facility], [address], [place] [address], Ph. 2020-01-16 2020-01-16 Outpatient Kelly Mendoza n [id number] 00:00:00 00:00:00 Medical Medical On[facility] [place] 2020-01-14 2020-01-14 Outpatient Delmy Cheyennemonica [facility] n [id number] 00:00:00 00:00:00 Yeni cervantes Medical Medical Oncology [facility] [place] 2020-01-07 2020-01-07 Delmy Su [facility] 2 [id number] 00:00:00 00:00:00 Petrona cervantes Medical Medical Oncology [facility] [place] 2020-01-06 2020-01-06 Outpatient Kelly Brock [facility] n [id number] 00:00:00 00:00:00 Yeni cervantes Medical Medical Oncology [facility] [place] 2019-12-29 2019-12-29 Outpatient [facility] n [id number] 00:00:00 00:00:00 Medical Medical Oncology Oncology [facility] 2019-12-25 2019-12-25 Outpatient [facility] n [id number] 00:00:00 00:00:00 Medical Medical Oncology Oncology [facility] 2019-12-23 2019-12-23 Outpatient [facility] [place] n [id number] 00:00:00 00:00:00 [facility] Medical Oncology Oncology [facility] 2019-12-16 2019-12-16 Levi Chayo Domingo [id number] 00:00:00 00:00:00 Kelton DO: Surgical Surgical [id number] [address] [facility], [address] [address], Ph. 2019-12-16 2019-12-16 Outpatient [facility] [place] n [id number] 00:00:00 00:00:00 Medical Medical Oncology Oncology [facility] 2019-12-02 2019-12-02 Keely Newbyt [id number] 00:00:00 00:00:00 [facility] [id number] PA-C: [address] [employer], [place] [address], Ph. 2019-11-27 2019-11-27 [facility], [facility] 38 [id number] 14:45:00 14:45:00 Qiana Ramos [id number] s [id number] and [id number] Multispecial Clinic, 2019-09-02 2019-09-02 Keely Newbyt [id number] 00:00:00 00:00:00 [facility] [address] PA-C: [address] [employer], [place] [address], Ph. 2019-05-27 2019-05-27 Outpatient [facility] [id number] 15:50:00 15:50:00 KEELY Jarvis 2019-05-27 2019-05-27 Keely Gannoneret [id number] 00:00:00 00:00:00 [facility] [id number] PA-C: [address] Group, [facility], [facility] [address], [place] [address], Ph. 2019-01-07 2019-01-07 Levi Domingo [id number] 00:00:00 00:00:00 Kelton DO: Surgical Surgical [id number] [address] [facility], [address], [place] [address], Ph. 2018-12-10 2018-12-10 Levi Domingo [id number] 00:00:00 00:00:00 Kelton DO: Surgical Surgical [id number] [address] [facility], [address], [place] [address], Ph. 2018-02-25 2018-02-25 Emergency [facility] [id number] 17:19:54 19:48:00 2018-02-25 2018-02-25 Emergency X KATY, [facility] 2616 [id number] 17:19:54 19:48:00 [employer] Payers Payer Name Policy Type Policy Number Effective Date Expiration D ate MEDICAID MEDICAID [place]ISE xxxxxxxxxx ACCESS xxxxxxxxxx Medicaid [id number] MEDICAID [place] ACCESS [id number] Plan of Treatment Planned Activity Planned Date Details Comments Future Scheduled Test [code = ] Future Appointment 2020-07-13 13:40:00 Keely Emmanuel, [address], [place] [address] Future Appointment 2020-07-04 00:00:00 Keely Emmanuel [address]; [address], [place] [address] Future Appointment 2020-04-28 13:15:00 Dillon Garcia, [address] [facility] [address]; , [facility] [address] Instructions Attachments The following [facility]. Chest Pain, Noncardiac (ESTONIAN) Social History Social Habit Start Date Stop Date Comments Cigarettes smoked current (pack per 2018-02-25 00:00:00 00:00:00 day) - Reported Cigarette pack-years 2018-02-25 00:00:00 2018-02-25 00:00:00 Smoking Status Start Date Stop Date Light Tobacco Smoker History of tobacco use Unknown If Ever Smoked Current every day smoker 2020-02-13 00:00:00 2020-02-13 00:0 0:00 Social History Observation Description Sex Female Vital Signs Vital Name Observation Time Observation Value Comments Height 2020-04-07 00:00:00 60 [in_i] BP Diastolic 2020-04-06 00:00:00 58 mm[Hg] Height 2020-04-06 00:00:00 61 [in_i] BMI (Body Mass Index) 2020-04-06 00:00:00 27.8 kg/m2 BP Systolic 2020-04-06 00:00:00 124 mm[Hg] Body Weight 2020-04-06 00:00:00 147 [lb_av] Height 2020-03-17 00:00:00 60 [in_i] Height 2020-01-22 00:00:00 60 [in_i] BMI (Body Mass Index) 2020-01-22 00:00:00 27 kg/m2 Body Weight 2020-01-22 00:00:00 138 [lb_av] Height 2019-12-16 00:00:00 60 [in_i] BP Diastolic 2019-12-02 00:00:00 52 mm[Hg] Height 2019-12-02 00:00:00 61 [in_i] BMI (Body Mass Index) 2019-12-02 00:00:00 27.1 kg/m2 BP Systolic 2019-12-02 00:00:00 104 mm[Hg] Body Weight 2019-12-02 00:00:00 143.3 [lb_av] BP Diastolic 2019-09-02 00:00:00 55 mm[Hg] Height 2019-09-02 00:00:00 61 [in_i] BMI (Body Mass Index) 2019-09-02 00:00:00 26.1 kg/m2 BP Systolic 2019-09-02 00:00:00 119 mm[Hg] Body Weight 2019-09-02 00:00:00 138 [lb_av] BP Diastolic 2019-05-27 00:00:00 47 mm[Hg] Height 2019-05-27 00:00:00 61 [in_i] BMI (Body Mass Index) 2019-05-27 00:00:00 25.9 kg/m2 BP Systolic 2019-05-27 00:00:00 118 mm[Hg] Body Weight 2019-05-27 00:00:00 137 [lb_av] BP Diastolic 2019-01-07 00:00:00 78 mm[Hg] Height 2019-01-07 00:00:00 60 [in_i] BP Systolic 2019-01-07 00:00:00 120 mm[Hg] BP Diastolic 2018-12-10 00:00:00 60 mm[Hg] Height 2018-12-10 00:00:00 60 [in_i] BMI (Body Mass Index) 2018-12-10 00:00:00 27 kg/m2 BP Systolic 2018-12-10 00:00:00 100 mm[Hg] Body Weight 2018-12-10 00:00:00 138 [lb_av] BMI 2020-02-13 13:39:00 28.2400 BP siddiqui 2020-02-13 13:39:00 56.0000 mm[Hg] Bdy height 2020-02-13 13:39:00 60.0000 [in_i] Heart rate 2020-02-13 13:39:00 77.0000 /min Resp rate 2020-02-13 13:39:00 16.0000 /min BP sys 2020-02-13 13:39:00 138.0000 mm[Hg] Body temperature 2020-02-13 13:39:00 97.3000 [degF] Weight 2020-02-13 13:39:00 144.6000 [lb_av] BMI 2020-01-07 11:08:53 27.5400 BP siddiqui 2020-01-07 11:08:53 57.0000 mm[Hg] Bdy height 2020-01-07 11:08:53 60.0000 [in_i] SaO2% BldA PulseOx 2020-01-07 11:08:53 97.0000 % Heart rate 2020-01-07 11:08:53 80.0000 /min Resp rate 2020-01-07 11:08:53 17.0000 /min BP sys 2020-01-07 11:08:53 129.0000 mm[Hg] Body temperature 2020-01-07 11:08:53 98.0000 [degF] Weight 2020-01-07 11:08:53 141.0000 [lb_av] Systolic blood pressure 2018-02-25 19:34:00 114 mm[Hg] Diastolic blood pressure 2018-02-25 19:34:00 52 mm[Hg] Heart rate 2018-02-25 19:34:00 76 /min Body temperature 2018-02-25 19:34:00 36.67 Caryn Respiratory rate 2018-02-25 19:34:00 18 /min Oxygen saturation in Arterial blood by 2018-02-25 19:34:00 96 % Pulse oximetry Body height 2018-02-25 17:11:00 152.4 cm Body weight Measured 2018-02-25 17:11:00 61.689 kg BMI 2018-02-25 17:11:00 26.56 kg/m2 Hospital Discharge Instructions 1. Type 2 diabetes mellitus glucose, fingerstick, blood HbA1c (hemoglobin A1c), blood glipizide ER 10 mg tablet, extended release 24 hr 2. Long-term current use of insulin 3. Diabetic peripheral neuropathy Lyrica 150 mg capsule 4. Retinopathy due to diabetes mellitus Discussion Note: None recorded. Patient educational handouts: No information available.1. Chronic pain syndrome 2. Sacroiliac joint pain sacroiliac joint injection (PROC) - Series of 3: B/L SIJ #1 3. Low back pain 4. Medication monitoring drug screen, urine Discussion Note: None recorded. Patient educational handouts: No information available.1. Low back pain 2. Arthropathy of lumbar facet joint 3. Lumbosacral spondylosis without myelopathy 4. Sacroiliac disorder 5. Degeneration of lumbar intervertebral disc Discussion Note: None recorded. P atient educational handouts: No information available.1. Arthropathy of lumbar facet joint 2. Lumbosacral spondylosis without myelopathy 3. Sacroiliac disorder 4. Degeneration of lumbar intervertebral disc 5. Low back pain XR, lumbar spine Discussion Note: None recorded. Patient educational handouts: No information available.1. Type 2 diabetes mellitus HbA1c (hemoglobin A1c), blood glucose, fingerstick, blood patient follow up phone call 2. Microalbuminuria 3. Long-term current use of insulin 4. Retinopathy dueto diabetes mellitus Discussion Note: None recorded. Patient educational handouts: No information available.1. Type 2 diabetes mellitus HbA1c (hemoglobin A1c), blood glucose, fingerstick, blood 2. Microalbuminuria 3. Body mass index 25-29 - overweight eating healthy foods: care instructions 4. Diabetic peripheral neuropathy gabapentin 600 mg tablet 5. Peripheral vascular disease Discussion Note: None recorded.1. Type 2 diabetes mellitus HbA1c (hemoglobin A1c), blood glucose, fingerstick, blood TSH, serum or plasma lipid panel, serum albumin/creatinine, ratio, urine CMP, serum or plasma eye care referral C-peptide, serum glipizide ER 10 mg tablet, extended release 24 hr 2. Diabetic peripheral neuropathy gabapentin 300 mg capsule Discussion Note: None recorded. Patient educational handouts: No information available.1. Low back pain getting back to normal after low back pain: care instructions XR, lumbar spine 2. Arthropathy of lumbar facet joint baclofen 20 mg tablet 3. Lumbosacral spondylosis withoutmyelopathy 4. Sacroiliac disorder 5. Degeneration of lumbar intervertebral disc Discussion Note: None recorded.Attachments The following attachments cannot be sent through Care Everywhere. Chest Pain, Noncardiac(ESTONIAN) in this encounter
[2020-04-22] MEDS: BESIFLOXACIN HCL 0.6% OPH SUSP 5 ML BOTTLE OD PRN ×4 (07:56→08:49)
[2020-04-22] MEDS: CYCLOPENTOLATE 0.2%/PHENYLEPHRINE 1% OPH SOLN 2 ML OD PRN ×3 (07:56→08:16)
[2020-04-22] MEDS: TROPICAMIDE 1% OPH SOLN 15 ML OD PRN ×3 (07:56→08:16)
[2020-04-22] MEDS: TETRACAINE HCL 0.5% OPH SOLN 4 ML OD PRN ×3 (07:57→08:30)
[2020-04-22] MEDS ORDERED: FENTANYL CITRATE INJ/PF 100 MCG/2 ML AMPUL ONE (08:20)
[2020-04-22] MEDS ORDERED: MIDAZOLAM 2 MG/2 ML INJ ONE (08:20)
[2020-04-22] MEDS: DORZOLAMIDE HCL 2%/TIMOLOL MALEAT 0.5% OPH SOLN 10 ML OD PRN ×2 (08:49)
[2020-04-22] MEDS: PREDNISOLONE ACETATE 1% OPH SUSP 5 ML OD PRN ×2 (08:49)
--- NOTE | 2020-04-23 13:05 | Operative Report ---
Operative Report-[facility] Operative Report: DATE OF SURGERY: 04/22/2020 PREOPERATIVE DIAGNOSIS: Cataract, right eye POSTOPERATIVE DIAGNOSIS: Cataract, right eye OPERATION: Cataract extraction with insertion of an IOL of the right eye. Intraocular Lens Model: [27.0 ZCB 00] Patient underwent surgery for difficulty seeing road signs SURGEON: Damián Zambrano MD ANESTHESIA: Topical PROCEDURE: After obtaining appropriate consent, the patient's right eye was prepped and draped in a sterile fashion as well as the surgeon in the sterile manner and cataract surgery was started. First a paracentesis blade was used to make a side-port incision. Viscoelastic was used to inflate the anterior chamber. Next a 2.4 mm incision was made with a 2.4 mm blade, clear corneal temporarily. A continuous capsulorrhexis was made using a cystotome and Utrata forceps. Following this hydrodissection was carried out to make the olga fully loose and mobile and it was rotated. Following this, a divide and conquer technique was used to phacoemulsify the olga. The remaining cortex was removed with an irrigation/aspiration. Provisc was instilled into the capsular bag to inflate the bag. The intraocular lens was placed. The remaining viscoelastic material was removed with irrigation/aspiration. Following this, the incision was found to be watertight. Besivance and Cosopt was instilled into the eye and a protective shield was placed over the eye. The patient was reurned to the postoperative recovery in a stable condition.
== END 2020-04-22 09:22 | disposition home or self-care (01) ==
LOC: SC 07:29
PROVIDERS: ATTEND Internal Medicine
DX: H25.11 Age-related nuclear cataract, right eye (principal); H40.033 Anatomical narrow angle, bilateral; E11.3291 Type 2 diabetes mellitus with mild nonproliferative diabetic retinopathy without macular edema, right eye; Z79.84 Long term (current) use of oral hypoglycemic drugs; Z79.82 Long term (current) use of aspirin; F17.210 Nicotine dependence, cigarettes, uncomplicated; I10 Essential (primary) hypertension; E78.00 Pure hypercholesterolemia, unspecified; K21.9 Gastro-esophageal reflux disease without esophagitis; Z86.73 Personal history of transient ischemic attack (TIA), and cerebral infarction without residual deficits; J44.9 Chronic obstructive pulmonary disease, unspecified; M19.90 Unspecified osteoarthritis, unspecified site; Z95.1 Presence of aortocoronary bypass graft
CPT/HCPCS: 66984; 82962; V2632; J2250; J3490 ×3; J0171; J3010; 142